=== PATIENT | male | born 1960 | race Caucasian/White ===

== ENCOUNTER 2018-02-19 10:45 | Emergency (ER) | payer OTHER ==
[~2018-02-19] VITALS: Ht 175.3 cm; Wt 108.9 kg
[2018-02-19] MEDS ORDERED: ASPIRIN325 PO (11:02)
[2018-02-19] MEDS ORDERED: COZAAR 25 MG TA25 M1 PO (11:02)
[2018-02-19] MEDS ORDERED: ZOLOFT50 MG PO (11:03)
[2018-02-19] MEDS ORDERED: FLONASE 0.05%50 MCG NASAL (11:03)
[2018-02-19] MEDS ORDERED: FLOMAX0.4 MG PO (11:03)
[2018-02-19] MEDS ORDERED: LIPITOR80 MG PO (11:04)
[2018-02-19] MEDS ORDERED: COREG6.25 MG PO (11:04)
[2018-02-19] MEDS ORDERED: NORVASC5 MG PO (11:04)
[2018-02-19] MEDS ORDERED: PEPCID20 MG PO (11:04)
[2018-02-19] MEDS ORDERED: LANTUS100 UNIT/M SUBQ (11:05)
[2018-02-19] MEDS ORDERED: HUMALOG100 UNIT/1 SUBQ (11:05)
[2018-02-19] MEDS ORDERED: TESSALON PERLE100 MG PO (11:46)
[2018-02-19] MEDS ORDERED: CORICIDIN HBP1 EACH PO (11:46)
[2018-02-19 12:17] VITALS: BP 171/53
== END 2018-02-19 12:17 | disposition home or self-care (01) ==
LOC: ER 10:45
DX: J06.9 Acute upper respiratory infection, unspecified (principal); E11.9 Type 2 diabetes mellitus without complications; Z79.4 Long term (current) use of insulin

== ENCOUNTER 2018-06-01 05:40 | Day surgery (SDC) | payer OTHER ==
[~2018-06-01] VITALS: Ht 175.3 cm; Wt 108.1 kg
--- NOTE | ~2018-06-01 | O ---
[facility] [place] [address] OPERATIVE REPORT Name: MONTSE BARFIELD Room #: 150-9 [facility] M.R.#: [id number] Admission: 06/01/18 ������������������ Attend Phys: Rosaura Guevara, Discharge: ������������������ Date of : 62 Report #: [id number] THIS REPORT FOR: //name// CC: Shaun Guevara DATE OF SERVICE: 06/01/2018 PREOPERATIVE DIAGNOSIS: Left ring finger trigger finger. POSTOPERATIVE DIAGNOSIS: Left ring finger trigger finger. PROCEDURE PERFORMED: Left ring finger A1 gamal release. SURGEON: Rosaura Guevara M.D. ANESTHESIA: Local MAC anesthesia. ESTIMATED BLOOD LOSS: Minimal. TOURNIQUET TIME: 6 minutes. COMPLICATIONS: None. CONDITION: Stable. DISPOSITION: To the recovery room. INDICATIONS: The patient is a 58-year-old male with the above-mentioned diagnosis. He elects for operative treatment. The risks, benefits, alternatives and complications were discussed that included, but not limited to infection, damage to vessels or nerves and incomplete relief of his symptoms. Informed consent was obtained. The correct extremity was identified by myself after verbal confirmation of the patient as well as visual confirmation and signed informed consent. DESCRIPTION OF PROCEDURE: The patient was brought back to the operating room and placed on the operating table in supine position. He received preoperative antibiotics. Tourniquet was placed over padding on the patient's left upper extremity. Left upper extremity was sterilely prepped and draped in the usual fashion. Final timeout was taken to verify correct patient, operative procedure and operative site and all concurred. After adequate sedation was achieved, approximately 2 mL of mixture of 0.25% Marcaine and 1% lidocaine was injected subcutaneously into the proposed incision site. The entire procedure was done with the aid of 3.5 times loupe magnification. The arm was elevated, exsanguinated and tourniquet inflated. [facility] [address] [place] [address] OPERATIVE REPORT Name: MONTSE BARFIELD Room #: 150-9 [facility] M..#: [id number] Admission: 06/01/18 ������������������ Attend Phys: Rosaura Guevara, Discharge: ������������������ Date of : 62 Report #: [id number] Next, a 1.5-cm incision made over the A1 gamal on the left ring finger. Dissection was carried down to the subcutaneous tissue with tenotomy scissors. A1 gamal was easily identified and incised. Careful attention was placed to avoid any damage to the A2 gamal. Next, each tendon was brought in gently through the incision to decrease any injury to the tendons. The finger was taken through passive range of motion. The tendons glided smoothly. Due to the patient's sedation, he was unable to actively participate. The entire procedure was done with the aid of 3.5 times loupe magnification. The wound was thoroughly irrigated. Skin was closed with 4-0 nylon suture. The wound was dressed with Adaptic and sterile gauze. He was placed in a bulky dressing. All fingers were pink with brisk capillary refill at the conclusion of the case, after deflation of the tourniquet. Sponge and needle counts were correct. The patient was transferred to postoperative recovery room in stable condition. ��������������������������������������������� ���������������������������������������� By: ��������������������������������������������� 1144 1243 Rosaura Guevara MD /nt
[~2018-06-01 05:40] MED LIST: ASPIRIN325 PO; CARVEDILOL12.5 MG PO; COREG6.25 MG PO; CORICIDIN HBP1 EACH PO; COZAAR 25 MG TA25 M1 PO; COZAAR100 MG PO; FLOMAX0.4 MG PO; FLONASE 0.05%50 MCG NASAL; HUMALOG100 UNIT/1 SUBQ; LANTUS100 UNIT/M SUBQ; LIPITOR80 MG PO; NORVASC5 MG PO; PEPCID20 MG PO; TESSALON PERLE100 MG PO; ZOLOFT50 MG PO
[2018-06-01 09:55] VITALS: BP 128/63
[2018-06-01 12:06] VITALS: BP 128/63
== END 2018-06-01 12:45 | disposition home or self-care (01) ==
LOC: TBA 05:40 → OR 05:40
DX: M65.342 Trigger finger, left ring finger (principal); I10 Essential (primary) hypertension; E11.9 Type 2 diabetes mellitus without complications; E78.5 Hyperlipidemia, unspecified; G47.33 Obstructive sleep apnea (adult) (pediatric); F32.9 Major depressive disorder, single episode, unspecified; F41.9 Anxiety disorder, unspecified; K21.9 Gastro-esophageal reflux disease without esophagitis; Z79.4 Long term (current) use of insulin; Z95.1 Presence of aortocoronary bypass graft; Z98.890 Other specified postprocedural states; Z79.899 Other long term (current) drug therapy; Z79.82 Long term (current) use of aspirin
CPT/HCPCS: 50010; 50101; 50386; 56526; 57006; 57091

== ENCOUNTER → 2019-09-11 | Outpatient (CLI) | payer OTHER ==
[2019-09-11 09:10] LABS: BASOPHILS 0.5 % (0.0-2.0); EOSINOPHILS 2.7 % (0.0-3.0); HEMATOCRIT 37.2 % (42.0-52.0); HEMOGLOBIN 12.4 gm/dL (14.0-18.0); LYMPHOCYTES 20.1 % (24.0-44.0); MCH 34.3 pg (26.0-34.0); MCHC 33.4 g/dL (28.0-37.0); MCV 102.7 fL (80.0-100.0); MONOCYTES 5.4 % (1.0-8.0); PLATELET COUNT 323 thou/uL (150-400); POLYS 71.3 % (36.0-66.0); RBC 3.62 mil/uL (4.50-6.00); RDW 12.3 % (10.5-14.5); WBC 8.4 thou/uL (4.0-11.0)
[2019-09-11 09:25] LABS: CALCIUM 8.3 mg/dL (8.5-10.1); CREATININE 2.2 mg/dL (0.7-1.3); POTASSIUM 5.1 mmol/L (3.5-5.1); TOTAL BILIRUBIN 0.9 mg/dL (0.2-1.0); TOTAL PROTEIN 5.7 g/dL (6.4-8.2)
== END ==
LOC: LAB 08:09
PROVIDERS: ATTEND Family Medicine
DX: E11.9 Type 2 diabetes mellitus without complications (principal)

== ENCOUNTER → 2019-09-11 | Outpatient (CLI) | payer OTHER | LOC: LAB 07:54 | PROVIDERS: ATTEND Nurse Practitioner | DX: R05 Cough (principal); R06.02 Shortness of breath; R53.83 Other fatigue; Z20.828 Contact with and (suspected) exposure to other viral communicable diseases ==

== ENCOUNTER → 2019-11-20 | Outpatient (CLI) | payer OTHER ==
[2019-11-20 11:14] LABS: URINE BILIRUBIN NEGATIVE (Negative); URINE BLOOD 1+ (Negative); URINE CLARITY CLEAR; URINE COLOR YELLOW; URINE GLUCOSE-RANDOM* NEGATIVE (Negative); URINE KETONES NEGATIVE (Negative); URINE LEUKOCYTES NEGATIVE (Negative); URINE NITRITE NEGATIVE (Negative); URINE PROTEIN (DIPSTICK) 3+ (Negative); URINE SPECIFIC GRAVITY >= 1.030 (1.005-1.035); URINE UROBILINOGEN 0.2 E.U./dl (0.2-1.0)
[2019-11-20 11:20] LABS: PROT/CREAT RATIO 4.5; URINE CREATININE-RANDOM* 80.6 mg/dL; URINE PROTEIN-RANDOM* 359.8 mg/dL (<11.9)
[2019-11-20 11:27] LABS: ALBUMIN 3.4 g/dL (3.4-5.0); CALCIUM 8.6 mg/dL (8.5-10.1); CREATININE 2.4 mg/dL (0.7-1.3); PHOSPHORUS 4.6 mg/dL (2.5-4.9); POTASSIUM 4.8 mmol/L (3.5-5.1)
[2019-11-20 11:31] LABS: BACTERIA None Seen /HPF (None Seen); CASTS None Seen /LPF (None Seen); CRYSTALS None Seen /LPF (None Seen); SQUAMOUS 0-3 Few /LPF (0-3); URINE RBC 0-2 Rare /HPF (0-2); URINE WBC None Seen /HPF (0-5)
== END ==
LOC: LAB 10:36
PROVIDERS: ATTEND Hospitalist
DX: I12.9 Hypertensive chronic kidney disease with stage 1 through stage 4 chronic kidney disease, or unspecified chronic kidney disease (principal); N18.3 Chronic kidney disease, stage 3 (moderate)

== ENCOUNTER → 2020-04-17 | Outpatient (CLI) | payer OTHER ==
[2020-04-17 08:46] LABS: ABSOLUTE NEUTROPHILS 4.4 thou/uL (1.4-8.2); BASOPHILS 0.6 % (0.0-2.0); EOSINOPHILS 2.8 % (0.0-3.0); HEMATOCRIT 32.7 % (42.0-52.0); HEMOGLOBIN 11.1 gm/dL (14.0-18.0); LYMPHOCYTES 20.8 % (24.0-44.0); MCH 34.4 pg (26.0-34.0); MCHC 33.9 g/dL (28.0-37.0); MCV 101.4 fL (80.0-100.0); MONOCYTES 7.5 % (1.0-8.0); PLATELET COUNT 324 thou/uL (150-400); POLYS 68.3 % (36.0-66.0); RBC 3.22 mil/uL (4.50-6.00); RDW 12.6 % (10.5-14.5); WBC 6.5 thou/uL (4.0-11.0)
[2020-04-17 09:08] LABS: CALCIUM 8.6 mg/dL (8.5-10.1); CREATININE 2.9 mg/dL (0.7-1.3); POTASSIUM 4.6 mmol/L (3.5-5.1); TOTAL BILIRUBIN 0.5 mg/dL (0.2-1.0); TOTAL PROTEIN 6.3 g/dL (6.4-8.2)
[2020-04-17 12:07] LABS: PSA 0.9 ng/mL (0.0-4.0); TESTOSTERONE* 500 ng/dL (264-916)
== END ==
LOC: LAB 08:15
PROVIDERS: ATTEND Nurse Practitioner
DX: E55.9 Vitamin D deficiency, unspecified (principal); R68.82 Decreased libido; E11.9 Type 2 diabetes mellitus without complications; R35.1 Nocturia

== ENCOUNTER → 2020-04-29 | Outpatient (CLI) | payer OTHER | LOC: SJCVCIMAG 10:00 | PROVIDERS: ATTEND Internal Medicine | DX: I07.1 Rheumatic tricuspid insufficiency (principal); R00.2 Palpitations; I10 Essential (primary) hypertension; E11.9 Type 2 diabetes mellitus without complications; Z95.1 Presence of aortocoronary bypass graft ==

== ENCOUNTER → 2020-05-19 | Outpatient (CLI) | payer OTHER ==
[2020-05-19 16:14] LABS: URINE BILIRUBIN NEGATIVE (Negative); URINE BLOOD 1+ (Negative); URINE CLARITY CLEAR; URINE COLOR YELLOW; URINE GLUCOSE-RANDOM* TRACE (Negative); URINE KETONES NEGATIVE (Negative); URINE LEUKOCYTES NEGATIVE (Negative); URINE NITRITE NEGATIVE (Negative); URINE PROTEIN (DIPSTICK) 3+ (Negative); URINE SPECIFIC GRAVITY >= 1.030 (1.005-1.035); URINE UROBILINOGEN 0.2 E.U./dl (0.2-1.0)
[2020-05-19 16:23] LABS: URINE CREATININE-RANDOM* 99.3 mg/dL
[2020-05-19 16:25] LABS: ALBUMIN 2.8 g/dL (3.4-5.0); CALCIUM 7.8 mg/dL (8.5-10.1); CREATININE 3.6 mg/dL (0.7-1.3); PHOSPHORUS 4.2 mg/dL (2.6-4.7)
[2020-05-19 16:30] LABS: CRYSTALS None Seen /LPF (None Seen); FINE GRANULAR CASTS 0-3 Few /LPF (None Seen); SQUAMOUS 0-3 Few /LPF (0-3); URINE WBC 0-5 Rare /HPF (0-5)
[2020-05-19 16:31] LABS: BACTERIA 1-9 Few /HPF (None Seen); URINE RBC 0-2 Rare /HPF (0-2)
[2020-05-19 16:34] LABS: PROT/CREAT RATIO 6.5; URINE PROTEIN-RANDOM* 643.5 mg/dL (<11.9)
== END ==
LOC: LAB 15:36
PROVIDERS: ATTEND Hospitalist
DX: I10 Essential (primary) hypertension (principal); N18.30 Chronic kidney disease, stage 3 unspecified

== ENCOUNTER → 2020-05-30 | Outpatient (CLI) | payer OTHER | LOC: LAB 13:08 | PROVIDERS: ATTEND Internal Medicine | DX: R53.83 Other fatigue (principal) ==

== ENCOUNTER → 2020-05-30 | Outpatient (CLI) | payer OTHER | LOC: SJCVCIMAG 07:37 | PROVIDERS: ATTEND Internal Medicine | DX: I49.3 Ventricular premature depolarization (principal); E78.5 Hyperlipidemia, unspecified; I10 Essential (primary) hypertension; E11.9 Type 2 diabetes mellitus without complications; R53.83 Other fatigue; R06.00 Dyspnea, unspecified; Z79.4 Long term (current) use of insulin; Z95.1 Presence of aortocoronary bypass graft; Z79.899 Other long term (current) drug therapy; Z79.82 Long term (current) use of aspirin ==

== ENCOUNTER → 2020-06-02 | Outpatient (CLI) | payer OTHER | LOC: MRI 10:51 | PROVIDERS: ATTEND Family Medicine | DX: R42 Dizziness and giddiness (principal); H70.12 Chronic mastoiditis, left ear; R25.1 Tremor, unspecified ==

== ENCOUNTER → 2020-07-18 | Outpatient (CLI) | payer OTHER | LOC: CAT 15:50 | PROVIDERS: ATTEND Otolaryngology Plastic Surgery within the Head & Neck | DX: G47.33 Obstructive sleep apnea (adult) (pediatric) (principal); H70.90 Unspecified mastoiditis, unspecified ear; R09.82 Postnasal drip ==

== ENCOUNTER → 2020-09-08 | Outpatient (CLI) | payer OTHER ==
[2020-09-08 16:41] LABS: ABSOLUTE NEUTROPHILS 5.9 thou/uL (1.4-8.2); BASOPHILS 0.3 % (0.0-2.0); EOSINOPHILS 3.3 % (0.0-3.0); HEMATOCRIT 29.7 % (42.0-52.0); HEMOGLOBIN 9.9 gm/dL (14.0-18.0); MCH 34.9 pg (26.0-34.0); MCHC 33.4 g/dL (28.0-37.0); MCV 104.4 fL (80.0-100.0); MONOCYTES 7.4 % (1.0-8.0); PLATELET COUNT 296 thou/uL (150-400); RBC 2.85 mil/uL (4.50-6.00); RDW 13.2 % (10.5-14.5); WBC 8.7 thou/uL (4.0-11.0)
[2020-09-08 16:48] LABS: % SATURATION 26 % (20-39); IRON 65 ug/dL (65-175); TIBC 246 ug/dL (250-450)
[2020-09-08 16:49] LABS: ALBUMIN 2.9 g/dL (3.4-5.0); CALCIUM 7.6 mg/dL (8.5-10.1); CREATININE 4.3 mg/dL (0.7-1.3); PHOSPHORUS 3.7 mg/dL (2.5-4.9); POTASSIUM 5.7 mmol/L (3.5-5.1); PROT/CREAT RATIO 5.4; TOTAL BILIRUBIN 0.4 mg/dL (0.2-1.0); TOTAL PROTEIN 6.3 g/dL (6.4-8.2); URINE CREATININE-RANDOM* 99.3 mg/dL; URINE PROTEIN-RANDOM* 533.2 mg/dL (<11.9)
[2020-09-09 01:06] LABS: GLYCOHEMOGLOBIN (HGB A1C) 6.8 % (4.8-5.6)
== END ==
LOC: LAB 16:00
PROVIDERS: ATTEND Hospitalist
DX: N18.4 Chronic kidney disease, stage 4 (severe) (principal); D63.1 Anemia in chronic kidney disease

== ENCOUNTER 2020-10-01 17:53 | Inpatient (IN) | payer OTHER ==
[~2020-10-01] VITALS: Ht 175.3 cm; Wt 104.3 kg
[2020-10-01 17:55] VITALS: BP 197/87
[2020-10-01] MEDS ORDERED: LANTUS100 UNIT/M SUBQ (18:34)
[2020-10-01 18:55] LABS: ABSOLUTE NEUTROPHILS 4.6 thou/uL (1.4-8.2); BASOPHILS 0.8 % (0.0-2.0); EOSINOPHILS 3.1 % (0.0-3.0); HEMATOCRIT 28.6 % (42.0-52.0); HEMOGLOBIN 9.8 gm/dL (14.0-18.0); LYMPHOCYTES 23.6 % (24.0-44.0); MCH 35.5 pg (26.0-34.0); MCHC 34.2 g/dL (28.0-37.0); MCV 103.9 fL (80.0-100.0); MONOCYTES 8.6 % (1.0-8.0); PLATELET COUNT 297 thou/uL (150-400); POLYS 63.9 % (36.0-66.0); RBC 2.75 mil/uL (4.50-6.00); RDW 12.6 % (10.5-14.5); WBC 7.2 thou/uL (4.0-11.0)
[2020-10-01 19:11] LABS: POTASSIUM 6.8 mmol/L (3.5-5.1)
[2020-10-01 21:13] LABS: URINE BILIRUBIN NEGATIVE (Negative); URINE BLOOD TRACE (Negative); URINE CLARITY CLEAR; URINE COLOR YELLOW; URINE GLUCOSE-RANDOM* TRACE (Negative); URINE KETONES NEGATIVE (Negative); URINE LEUKOCYTES-REFLEX NEGATIVE (Negative); URINE NITRITE-REFLEX NEGATIVE (Negative); URINE PROTEIN (DIPSTICK) 3+ (Negative); URINE UROBILINOGEN 0.2 E.U./dl (0.2-1.0)
[2020-10-01 21:14] VITALS: BP 154/65
[2020-10-01 21:20] LABS: BACTERIA-REFLEX 1-9 Few /HPF (None Seen); CELLULAR CASTS 0-3 Few /LPF (None Seen); CRYSTALS None Seen /LPF (None Seen); HYALINE CASTS 0-3 Few /LPF (None Seen); MUCUS 0-3 Light strn/LPF (None Seen); SQUAMOUS 0-3 Few /LPF (0-3); URINE RBC 1-2 Rare /HPF (NONE SEEN); URINE WBC-REFLEX 0-5 Rare /HPF (0-5)
[2020-10-01 21:31] VITALS: BP 159/78
[2020-10-01 22:11] VITALS: BP 182/82
[2020-10-02 00:15] VITALS: BP 168/78
[2020-10-02 04:49] VITALS: BP 187/94
--- NOTE | 2020-10-02 07:12 | EKG ---
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
[2020-10-02 07:53] VITALS: BP 191/82
[2020-10-02 09:08] LABS: CALCIUM 8.7 mg/dL (8.5-10.1); CREATININE 4.5 mg/dL (0.7-1.3)
[2020-10-02 09:10] LABS: POTASSIUM 5.5 mmol/L (3.5-5.1)
[2020-10-02 14:19] LABS: URINE BILIRUBIN NEGATIVE (Negative); URINE BLOOD TRACE (Negative); URINE CLARITY CLEAR; URINE COLOR YELLOW; URINE GLUCOSE-RANDOM* TRACE (Negative); URINE KETONES NEGATIVE (Negative); URINE LEUKOCYTES NEGATIVE (Negative); URINE NITRITE NEGATIVE (Negative); URINE PROTEIN (DIPSTICK) 3+ (Negative); URINE SPECIFIC GRAVITY 1.025 (1.005-1.035); URINE UROBILINOGEN 0.2 E.U./dl (0.2-1.0)
[2020-10-02 14:22] LABS: URINE CREATININE-RANDOM* 83.2 mg/dL
[2020-10-02 14:58] LABS: CASTS None Seen /LPF (None Seen); CRYSTALS None Seen /LPF (None Seen); SQUAMOUS None Seen /LPF (0-3); URINE RBC 1-2 Rare /HPF (NONE SEEN); URINE WBC 1-5 Rare /HPF (NONE SEEN)
[2020-10-02 14:59] LABS: BACTERIA 1-9 Few /HPF (None Seen)
[2020-10-02 16:55] VITALS: BP 173/78
[2020-10-03 05:54] LABS: ALBUMIN 2.7 g/dL (3.4-5.0); CALCIUM 8.2 mg/dL (8.5-10.1); CREATININE 3.8 mg/dL (0.7-1.3); PHOSPHORUS 4.1 mg/dL (2.5-4.9); POTASSIUM 5.1 mmol/L (3.5-5.1)
[2020-10-03 07:54] VITALS: BP 209/90
[2020-10-03] MEDS ORDERED: NORVASC5 MG PO (08:07)
[2020-10-03 09:36] VITALS: BP 179/83
[2020-10-03 16:14] VITALS: BP 155/84
[2020-10-03 18:23] VITALS: BP 155/84
[2020-10-03 19:26] VITALS: BP 155/78
== END 2020-10-03 20:30 | disposition home or self-care (01) | DRG 684 ==
LOC: ER 17:53 → 4W 20:02 → EROBS 20:02 → 4W 21:36
PROVIDERS: Emergency Medicine; Hospitalist; ADMIT Family Medicine; ATTEND Family Medicine
DX: N17.9 Acute kidney failure, unspecified (principal); N18.4 Chronic kidney disease, stage 4 (severe); E78.5 Hyperlipidemia, unspecified; F32.9 Major depressive disorder, single episode, unspecified; F41.9 Anxiety disorder, unspecified; I25.10 Atherosclerotic heart disease of native coronary artery without angina pectoris; E87.5 Hyperkalemia; E11.22 Type 2 diabetes mellitus with diabetic chronic kidney disease; I12.9 Hypertensive chronic kidney disease with stage 1 through stage 4 chronic kidney disease, or unspecified chronic kidney disease; N31.9 Neuromuscular dysfunction of bladder, unspecified; N32.0 Bladder-neck obstruction; N40.1 Benign prostatic hyperplasia with lower urinary tract symptoms; R33.8 Other retention of urine; Z79.4 Long term (current) use of insulin; Z95.1 Presence of aortocoronary bypass graft; Z82.49 Family history of ischemic heart disease and other diseases of the circulatory system; Z83.3 Family history of diabetes mellitus
CPT/HCPCS: 10045

== ENCOUNTER → 2020-10-01 | Outpatient (CLI) | payer OTHER ==
[2020-10-01 16:13] LABS: ALBUMIN 3.2 g/dL (3.4-5.0); CALCIUM 7.8 mg/dL (8.5-10.1); CREATININE 5.3 mg/dL (0.7-1.3); PHOSPHORUS 4.1 mg/dL (2.6-4.7)
== END ==
LOC: LAB 14:56
DX: N18.4 Chronic kidney disease, stage 4 (severe) (principal)

== ENCOUNTER → 2020-10-06 | Outpatient (CLI) | payer OTHER ==
[2020-10-06 12:55] LABS: CALCIUM 8.4 mg/dL (8.5-10.1); CREATININE 4.3 mg/dL (0.7-1.3); POTASSIUM 4.7 mmol/L (3.5-5.1)
== END ==
LOC: LAB 12:16
PROVIDERS: ATTEND Family Medicine
DX: E87.5 Hyperkalemia (principal)

== ENCOUNTER → 2020-10-13 | Outpatient (CLI) | payer OTHER ==
[~2020-10-13] VITALS: Ht 175.3 cm; Wt 104.3 kg
[~2020-10-13] MED LIST changes: +PROTONIX40 M2 PO; +VITAMIN D21250 MCG PO; +ZOLOFT50 M1 PO
--- NOTE | 2020-10-14 16:06 | PATH ---
[facility] [address] PATHOLOGY RPT PROCEDURE Name: DAVISMONTSE ALICE Room #: [facility].#: [id number] Admission: 10/13/20 Date of : 62 Discharge: Report #: [id number] Path Case #: [id number] [facility] Accession Number: [id number] . 01 Material submitted: . PART A: cecum - CECAL POLYP X2. Modifiers: X2 PART B: colon - TRANSVERSE COLON POLYP X2. Modifiers: transverse, X2 PART C: colon - DESCENDING COLON POLYP. Modifiers: descending PART D: sigmoid colon - SIGMOID COLON POLYP . 01 Clinical history: . EGD/COLONOSCOPY CHANGE IN BOWEL HABITS/GERD COLON POLYPS . 02 Diagnosis: A. Polyps x 2, cecal polyps, endoscopic biopsy: - Tubular adenoma identified in multiple fragments. - Negative for high-grade dysplasia. . B. Polyps x 2, transverse colon polyps, endoscopic biopsy: - Multiple fragments of tubular adenoma. - Negative for high-grade dysplasia. . C. Polyp, descending colon, endoscopic biopsy: - Tubular adenoma. - Negative for high-grade dysplasia. . D. Polyp, sigmoid colon polyp, endoscopic biopsy: - Tubulovillous adenoma. - Negative for high-grade dysplasia. - Unremarkable mucosa present at stalk base. (IUV:pit; 10/14/2020) QTP 10/14/2020 1248 Local . 02 Electronically signed: . Rowan Holloway MD, Pathologist NPI- [id number] . 01 Gross description: . A. The specimen is received in formalin, labeled "Scout Cannon and cecal polyp *2 ". It consists of multiple kaur irregular soft tissue fragments measuring 1.0 x 0.8 x 0.3 cm in aggregate. The specimen is entirely submitted between sponges in A1. . B. The specimen is received in formalin, labeled "Scout Cannon and transverse colon polyp" and per the requisition "transverse colon polyp [address] [address] PATHOLOGY RPT PROCEDURE Name: MONTSE CANNON Room #: REG [facility] Susanna.#: [id number] Admission: 10/13/20 Date of : 62 Discharge: Report #: [id number] Path Case #: [id number] *2". It consists of multiple akur irregular soft tissue fragments measuring 0.9 x 0.7 x 0.3 cm in aggregate. The specimen is entirely submitted between sponges in B1. . C. The specimen is received in formalin, labeled "DavisScout J and descending colon polyp". It consists of multiple kaur irregular soft tissue fragments measuring 0.5 x 0.3 x 0.2 cm in aggregate. The specimen is entirely submitted between sponges in C1. . D. The specimen is received in formalin, labeled "Davis, Butterfield J and sigmoid colon polyp". It consists of a kaur-brown polypoid soft tissue fragment measuring 1.2 x 1.1 x 0.9 cm. The resection surface is inked black and the specimen is sectioned. The specimen is entirely submitted in D1. (MRF; 10/13/2020) MFE/MFE 10/14/2020 1251 Local . 02 Pathologist provided ICD-10: D12.0, D12.3, D12.4, D12.5 . 02 CPT . 820265, 322143, 388509, 903700 Specimen Comment: A courtesy copy of this report has been sent to [phone], [phone] Specimen Comment: [id number] Specimen Comment: Report sent to / DR HAMM Performed at: 01 [facility] [address] [place] [address] [address], [place], [place] [id number] MD Dieter Sue MD Phone: [phone] Performed at: [address] [id number] MD Rowan Holloway MD Phone: [phone]
== END | disposition home or self-care (01) ==
LOC: GI 07:26
PROVIDERS: ATTEND Internal Medicine Gastroenterology
DX: Z12.11 Encounter for screening for malignant neoplasm of colon (principal); D12.0 Benign neoplasm of cecum; D12.3 Benign neoplasm of transverse colon; D12.4 Benign neoplasm of descending colon; D12.5 Benign neoplasm of sigmoid colon; K62.1 Rectal polyp; R12 Heartburn; I12.9 Hypertensive chronic kidney disease with stage 1 through stage 4 chronic kidney disease, or unspecified chronic kidney disease; E11.22 Type 2 diabetes mellitus with diabetic chronic kidney disease; E78.5 Hyperlipidemia, unspecified; N18.4 Chronic kidney disease, stage 4 (severe); I25.10 Atherosclerotic heart disease of native coronary artery without angina pectoris; E78.00 Pure hypercholesterolemia, unspecified; N40.0 Benign prostatic hyperplasia without lower urinary tract symptoms; K21.9 Gastro-esophageal reflux disease without esophagitis; J45.909 Unspecified asthma, uncomplicated; G47.30 Sleep apnea, unspecified; Z98.890 Other specified postprocedural states; Z79.899 Other long term (current) drug therapy; Z95.1 Presence of aortocoronary bypass graft; Z79.4 Long term (current) use of insulin
CPT/HCPCS: 62110; 62900

== ENCOUNTER → 2020-10-29 | Outpatient (CLI) | payer OTHER ==
[2020-10-29 16:08] LABS: ALBUMIN 3.3 g/dL (3.4-5.0); CALCIUM 8.2 mg/dL (8.5-10.1); CREATININE 4.1 mg/dL (0.7-1.3); PHOSPHORUS 4.4 mg/dL (2.5-4.9); POTASSIUM 4.9 mmol/L (3.5-5.1)
== END ==
LOC: LAB 15:20
PROVIDERS: ATTEND Hospitalist
DX: T85.43XA Leakage of breast prosthesis and implant, initial encounter (principal)

== ENCOUNTER → 2020-11-12 | Outpatient (CLI) | payer OTHER ==
[2020-11-12 17:46] LABS: ABSOLUTE NEUTROPHILS 4.2 thou/uL (1.4-8.2); BASOPHILS 0.9 % (0.0-2.0); EOSINOPHILS 2.8 % (0.0-3.0); HEMATOCRIT 36.4 % (42.0-52.0); LYMPHOCYTES 21.2 % (24.0-44.0); MCH 34.1 pg (26.0-34.0); MCHC 33.1 g/dL (28.0-37.0); MCV 103.1 fL (80.0-100.0); MONOCYTES 5.7 % (1.0-8.0); PLATELET COUNT 353 thou/uL (150-400); POLYS 69.4 % (36.0-66.0); RBC 3.53 mil/uL (4.50-6.00); RDW 12.8 % (10.5-14.5)
[2020-11-12 17:53] LABS: PROT/CREAT RATIO 4.1; URINE CREATININE-RANDOM* 105.8 mg/dL; URINE PROTEIN-RANDOM* 434.1 mg/dL (<11.9)
[2020-11-12 17:54] LABS: ALBUMIN 3.6 g/dL (3.4-5.0); CALCIUM 8.7 mg/dL (8.5-10.1); CREATININE 3.9 mg/dL (0.7-1.3); PHOSPHORUS 3.8 mg/dL (2.5-4.9); POTASSIUM 5.4 mmol/L (3.5-5.1)
== END ==
LOC: LAB 14:55
PROVIDERS: ATTEND Nurse Practitioner
DX: N18.4 Chronic kidney disease, stage 4 (severe) (principal)

== ENCOUNTER → 2021-01-14 | Outpatient (CLI) | payer OTHER ==
[2021-01-14 12:06] LABS: URINE BILIRUBIN NEGATIVE (Negative); URINE BLOOD NEGATIVE (Negative); URINE CLARITY CLEAR; URINE COLOR YELLOW; URINE GLUCOSE-RANDOM* NEGATIVE (Negative); URINE KETONES NEGATIVE (Negative); URINE LEUKOCYTES-REFLEX NEGATIVE (Negative); URINE NITRITE-REFLEX NEGATIVE (Negative); URINE PROTEIN (DIPSTICK) 2+ (Negative); URINE SPECIFIC GRAVITY >= 1.030 (1.005-1.035); URINE UROBILINOGEN 0.2 E.U./dl (0.2-1.0)
[2021-01-14 12:31] LABS: ALBUMIN 3.6 g/dL (3.4-5.0); CALCIUM 8.3 mg/dL (8.5-10.1); CREATININE 3.7 mg/dL (0.7-1.3); PHOSPHORUS 3.4 mg/dL (2.5-4.9); POTASSIUM 5.1 mmol/L (3.5-5.1)
[2021-01-14 12:54] LABS: CASTS None Seen /LPF (None Seen); MUCUS 0-3 Light strn/LPF (None Seen); SQUAMOUS 0-3 Few /LPF (0-3)
[2021-01-14 12:55] LABS: BACTERIA-REFLEX None Seen /HPF (None Seen); CRYSTALS None Seen /LPF (None Seen); URINE RBC None Seen /HPF (NONE SEEN); URINE WBC-REFLEX 0-5 Rare /HPF (0-5)
[2021-01-14 13:04] LABS: PROT/CREAT RATIO 2.8; URINE CREATININE-RANDOM* 127.6 mg/dL; URINE PROTEIN-RANDOM* 353.1 mg/dL (<11.9)
== END ==
LOC: LAB 11:34
PROVIDERS: ATTEND Hospitalist
DX: I12.9 Hypertensive chronic kidney disease with stage 1 through stage 4 chronic kidney disease, or unspecified chronic kidney disease (principal); R80.9 Proteinuria, unspecified; N18.4 Chronic kidney disease, stage 4 (severe); E78.5 Hyperlipidemia, unspecified

== ENCOUNTER 2021-03-13 10:34 | Inpatient (IN) | payer OTHER ==
[~2021-03-13] VITALS: Ht 175.3 cm; Wt 84.9 kg
[2021-03-13] VITALS (31 sets, daily range): BP systolic 136–159; BP diastolic 55–110
[2021-03-13 11:27] LABS: ABSOLUTE NEUTROPHILS 9.2 thou/uL (1.4-8.2); BASOPHILS 0.4 % (0.0-2.0); HEMATOCRIT 26.5 % (42.0-52.0); HEMOGLOBIN 8.7 gm/dL (14.0-18.0); LYMPHOCYTES 5.6 % (24.0-44.0); MCH 33.5 pg (26.0-34.0); MCHC 32.8 g/dL (28.0-37.0); MONOCYTES 5.1 % (1.0-8.0); PLATELET COUNT 320 thou/uL (150-400); POLYS 88.9 % (36.0-66.0); RDW 12.5 % (10.5-14.5); WBC 10.4 thou/uL (4.0-11.0)
[2021-03-13 11:34] LABS: CALCIUM 8.2 mg/dL (8.5-10.1); CREATININE 8.4 mg/dL (0.7-1.3); POTASSIUM 5.2 mmol/L (3.5-5.1)
[2021-03-13 11:38] LABS: APTT 43.9 Seconds (24.5-32.8); D-DIMER 1.36 ug/mLFEU (0.19-0.50); INR 1.05; PROTIME 11.4 Seconds (10.5-12.1)
[2021-03-13 11:44] LABS: ALBUMIN 2.7 g/dL (3.4-5.0); TOTAL BILIRUBIN 0.4 mg/dL (0.2-1.0); TOTAL PROTEIN 6.8 g/dL (6.4-8.2)
[2021-03-13] MEDS ORDERED: AMLODIPINE BESY10 MG PO (12:06)
[2021-03-13] MEDS ORDERED: COLACE 100 MG100 MG PO (12:07)
--- NOTE | 2021-03-13 14:59 | NUR ---
Patient arrived on the floor at 1435. Patient is assesssed by this RN. Patient is Alert and oriented x4. Patient has diminished lung sounds and is currently on 3L of oxygen. Patient is Med-surge/ tele. Patient is continent of both bowel and bladder. Patient is up with one assist/ supervision and is steady on his feet. Patient has an IV in his left AC that is patent. Patient arrived from the floor from IR where he had a dialysis cath placed in his right IJ; it is a triple lumen. Patient reports no pain at this time. Patient will continue to be monitored.
--- NOTE | 2021-03-13 16:22 | NUR ---
PATIENT TRANSFERRED TO ICU FROM 3W AT 1530 THIS AFTERNOON, ALERT AND ORIENTED AND DENIES PAIN. VITALS STABLE. ADMISSION HISTORY AND ASSESSMENT COMPLETED AND BELONGINGS IDENTIFIED. STARTED ON HEMODIALYSIS PER TEMP HD CATH BY HD NURSE.
[2021-03-14] VITALS (70 sets, daily range): BP systolic 127–204; BP diastolic 48–93
[2021-03-14 04:31] LABS: CALCIUM 7.7 mg/dL (8.5-10.1)
[2021-03-14 04:34] LABS: CREATININE 5.3 mg/dL (0.7-1.3); POTASSIUM 4.1 mmol/L (3.5-5.1)
[2021-03-14 04:35] LABS: ALBUMIN 2.3 g/dL (3.4-5.0); PHOSPHORUS 4.4 mg/dL (2.5-4.9)
--- NOTE | 2021-03-14 17:25 | NUR ---
assumed care of pt at 0700. pt alert and oriented, flat affect, no apparent distress. voicing no complaints. maintains spo2 on optiflow 45L/100%. remdesivir and IV abx initiated. ok to transfer to telemetry per hospitalist.
--- NOTE | 2021-03-14 21:44 | NUR ---
ASSUMED CARE OF PT AT 1900. SPOKE TO PT ARUN AT 2144. ANSWERED QUESTIONS AND UPDATED ON POC
[2021-03-15] VITALS (26 sets, daily range): BP systolic 135–179; BP diastolic 65–81
[2021-03-15 04:07] LABS: ANION GAP 12 mmol/L (7-16); BUN 54 mg/dL (7-18); CALCIUM 7.9 mg/dL (8.5-10.1); CHLORIDE 102 mmol/L (98-107); CO2 28 mmol/L (21-32); CREATININE 4.9 mg/dL (0.7-1.3); DIRECT BILIRUBIN < 0.1 mg/dL (<0.1-0.2); GLUCOSE 74 mg/dL (74-106); PHOSPHORUS 6.2 mg/dL (2.5-4.9); SGOT 33 U/L (15-37); SGPT 17 U/L (30-65); SODIUM 142 mmol/L (136-145); TOTAL BILIRUBIN 0.4 mg/dL (0.2-1.0)
[2021-03-15 04:08] LABS: ABSOLUTE NEUTROPHILS 5.4 thou/uL (1.4-8.2); BASOPHILS 0.2 % (0.0-2.0); HEMATOCRIT 21.7 % (42.0-52.0); HEMOGLOBIN 7.5 gm/dL (14.0-18.0); LYMPHOCYTES 7.7 % (24.0-44.0); MCHC 34.6 g/dL (28.0-37.0); MCV 98.4 fL (80.0-100.0); MONOCYTES 9.6 % (1.0-8.0); PLATELET COUNT 369 thou/uL (150-400); POLYS 82.5 % (36.0-66.0); RBC 2.21 mil/uL (4.50-6.00); RDW 12.8 % (10.5-14.5); WBC 6.6 thou/uL (4.0-11.0)
[2021-03-15 04:53] LABS: INR 1.11
[2021-03-15 05:21] LABS: FIBRINOGEN > 860 mg/dL (201-437)
[2021-03-15 07:25] LABS: HIV ANTIBODY Non Reactive (Non Reactive)
[2021-03-15 07:25] LABS: GLYCOHEMOGLOBIN (HGB A1C) 5.8 % (4.8-5.6)
--- NOTE | 2021-03-15 09:51 | NUR ---
THIS RN SPOKE WITH THE PATIENT'S , AVEL BARFIELD, FROM [id number] AND SHE WAS UPDATED AND EDUCATED ON THE PATIENT'S CONDITION AND PLAN OF CARE.
--- NOTE | 2021-03-15 23:33 | NUR ---
2215: Spoke with pt's , Tyuet, for approximately 30 minutes. Pt's updated on pt status; education also done regarding bipap, various reasons why pt is experiencing nausea, plan of care, answered questions about quality of life and restrictions on peritoneal dialysis. also concerned because pt works for [employer] and does not have any more sick days. Referred her to human resources and gave her their number to call in the morning.
[2021-03-16] VITALS (63 sets, daily range): BP systolic 90–179; BP diastolic 53–92
[2021-03-16 05:17] LABS: URINE BILIRUBIN NEGATIVE (Negative); URINE BLOOD 1+ (Negative); URINE CLARITY CLEAR; URINE COLOR YELLOW; URINE GLUCOSE-RANDOM* TRACE (Negative); URINE KETONES NEGATIVE (Negative); URINE LEUKOCYTES-REFLEX NEGATIVE (Negative); URINE NITRITE-REFLEX NEGATIVE (Negative); URINE PROTEIN (DIPSTICK) 3+ (Negative); URINE SPECIFIC GRAVITY 1.025 (1.005-1.035); URINE UROBILINOGEN 0.2 E.U./dl (0.2-1.0)
[2021-03-16 05:19] LABS: HEMATOCRIT 23.5 % (42.0-52.0); HEMOGLOBIN 7.9 gm/dL (14.0-18.0); MCH 33.8 pg (26.0-34.0); MCHC 33.6 g/dL (28.0-37.0); MCV 100.6 fL (80.0-100.0); RBC 2.33 mil/uL (4.50-6.00); WBC 9.8 thou/uL (4.0-11.0)
[2021-03-16 05:40] LABS: ALBUMIN 2.2 g/dL (3.4-5.0); ANION GAP 16 mmol/L (7-16); BUN 87 mg/dL (7-18); CALCIUM 7.9 mg/dL (8.5-10.1); CHLORIDE 98 mmol/L (98-107); CO2 24 mmol/L (21-32); DIRECT BILIRUBIN < 0.1 mg/dL (<0.1-0.2); GLUCOSE 154 mg/dL (74-106); PHOSPHORUS 7.5 mg/dL (2.5-4.9); POTASSIUM 4.5 mmol/L (3.5-5.1); SGOT 37 U/L (15-37); SGPT 15 U/L (30-65); SODIUM 138 mmol/L (136-145); TOTAL BILIRUBIN 0.5 mg/dL (0.2-1.0); TOTAL PROTEIN 6.2 g/dL (6.4-8.2)
[2021-03-16 05:49] LABS: CREATININE 6.9 mg/dL (0.7-1.3)
[2021-03-16 06:43] LABS: CASTS None Seen /LPF (None Seen); SQUAMOUS 0-3 Few /LPF (0-3)
[2021-03-16 06:44] LABS: AMORPHOUS URATES Few /LPF (None Seen); BACTERIA-REFLEX None Seen /HPF (None Seen); URINE RBC 1-2 Rare /HPF (NONE SEEN); URINE WBC-REFLEX 0-5 Rare /HPF (0-5)
--- NOTE | 2021-03-16 07:14 | EKG ---
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 : 1960 Requested By: Benedicto Roth Order Number: [id number] MD: Yahir Nava Measurements Intervals [place] Rate: 79 P: 45 TN: 157 QRS: -16 QRSD: 109 T: 30 QT: 403 QTc: 463 Interpretive Statements Sinus rhythm RSR' in V1 or V2, probably normal variant Inferior infarct, old Compared to ECG 10/01/2020 18:14:11 Sinus bradycardia no longer present Myocardial infarct finding still present Electronically Signed On 03-16-2021 7:14:11 SOCIAL WORKER by Yahir Nava [email or web address] <ELECTRONICALLY SIGNED> By: Yahir Nava MD, FAC 03/16/21 0714 1119 1119 Yahir Nava MD, [facility] /EPI
[2021-03-17] VITALS (31 sets, daily range): BP systolic 129–188; BP diastolic 58–106
[2021-03-17 05:54] LABS: HEMATOCRIT 26.5 % (42.0-52.0); HEMOGLOBIN 8.8 gm/dL (14.0-18.0); MCHC 33.2 g/dL (28.0-37.0); MCV 99.4 fL (80.0-100.0); PLATELET COUNT 481 thou/uL (150-400); RBC 2.67 mil/uL (4.50-6.00); RDW 12.8 % (10.5-14.5); WBC 8.4 thou/uL (4.0-11.0)
[2021-03-17 06:23] LABS: ALBUMIN 2.3 g/dL (3.4-5.0); CALCIUM 8.1 mg/dL (8.5-10.1); DIRECT BILIRUBIN 0.2 mg/dL (<0.1-0.2); PHOSPHORUS 5.2 mg/dL (2.5-4.9); POTASSIUM 4.1 mmol/L (3.5-5.1); TOTAL BILIRUBIN 1.1 mg/dL (0.2-1.0); TOTAL PROTEIN 6.2 g/dL (6.4-8.2)
[2021-03-17 06:33] LABS: CREATININE 5.8 mg/dL (0.7-1.3)
--- NOTE | 2021-03-17 06:36 | NUR ---
Pt is a&o x 4. communicates needs. pt has been on and off HFC and BIPAP this night. pt denies pain. Zofran adm during shift for nausea. Pt will likely undergo dialysis (subject to lab results) per Dr. Balderas.
[2021-03-17 07:54] LABS: ABSOLUTE NEUTROPHILS 6.6 thou/uL (1.4-8.2); ATYPICAL LYMPHS 2 %; MYELOCYTES 1 %; NUCLEATED RBCS 1 /100WBC
[2021-03-17 10:07] LABS: HEP B SURFACE Ab(ANTI-HBS Reactive (()); HEPATITIS B SURFACE AG Negative (Negative)
--- NOTE | 2021-03-17 14:01 | NUR ---
Case opened to follow for support and dc planning needs. Pt admitted to the ICU covid+ and in enhanced ISO. Assessment completed with pt's spouse marii via phone. Cm role introduced. 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 He is normally indep with gait and adl's and drives. He was working fulltime prior. He tested postive at home on 03/11/21. He was vaccined here last but per his has not gotten a booster. She has had both and been boosted. She is feeling well and has tested negative. She has been isolating at home. She has been in contact with at [employer] for [employer] paperwork and for his [employer] std info. She will provide those documents to Dr. Bhardwaj (pcp) office for completion. The pt has a hx of IDDM, HTN and was being followed by Dr. Balderas due to kidney disease. He was started on hemodialysis after admission and it is uncertain if this is will be needed correction. Case discussed with the care team. Dc planning needs and timeframe are uncertain at this time. Will follow along. Emotional support provided to pt's spouse.
--- NOTE | 2021-03-17 16:46 | NUR ---
PT RECEIVED DIALYSIS TODAY WITH APPROX 3LITERS OF FLUID BEING REMOVED FROM PATIENT. PT WAS ON OPTI-FLOW MOST OF THE DAY HOWEVER, STARTED TO DESAT IN HIGH 80'S PLACED BACK ON BIPAP AT 1620. PT OXYGENATION IMPROVED. WILL CONTINUE TO MONITOR AND REASSESS.
--- NOTE | 2021-03-17 22:43 | NUR ---
ASSUMED CARE OF PT AT 1900. SPOKE TO PT AT 0. UPDATED ON PT STATUS AND ANSWERED QUESTIONS.
--- NOTE | 2021-03-17 23:58 | HC ---
[facility] [place] [address] CONSULTATION Name: MONTSE BARFIELD Room #: 241-P ADM IN M.R.#: [id number] Admission: 03/13/21 Attend Phys: Aamir Raymundo Discharge: Date of : 62 Report #: [id number] THIS REPORT FOR: cc: Shaun Bhardwaj MD, Neal A. MD Geha, Daniel J. MD ~ DATE OF SERVICE: 03/14/2021 INFECTIOUS DISEASE CONSULTATION REASON FOR CONSULTATION: I was asked to evaluate concerning COVID-19 pneumonia. HISTORY OF PRESENT ILLNESS: The patient is a 60-year-old with diabetes, hypertension, and chronic kidney disease. He has been followed by Nephrology Service. There was anticipation for peritoneal dialysis in the near future. One week ago, the patient developed nonproductive cough, congestion, fatigue, myalgias, low-grade fever, and was tested positive for COVID-19. He developed progressive shortness of breath and presented for further evaluation. He was found to have bilateral infiltrates and hypoxia. He is now on high-flow oxygen. He has also had renal failure with a creatinine up to 8. Right neck dialysis catheter was placed and he is now on dialysis. Nephrology Service has been evaluating and treating. Denies any rash, arthritis, nausea, vomiting, diarrhea. No chest pain or palpitations. No hemoptysis. Denies headache or nausea. REVIEW OF SYSTEMS: A 14-point review of system is negative other than what has been described above. PAST MEDICAL HISTORY: Diabetes, hypertension, obstructive sleep apnea, depression, gastroesophageal reflux, chronic kidney disease with proteinuria, coronary artery bypass grafting, left wrist ganglion cyst excision, BPH, trigger finger release. ALLERGIES: None known. MEDICATIONS: As noted on his MAR, which were reviewed. FAMILY HISTORY: Diabetes, coronary artery disease. SOCIAL HISTORY: Nonsmoker, no significant alcohol intake. PHYSICAL EXAMINATION: GENERAL: He is afebrile and hemodynamically stable. Alert and cooperative on high-flow oxygen per nasal cannula. SKIN: Without rash or decubitus. No palpable adenopathy. [facility] [address] [place] [address] CONSULTATION Name: MONTSE BARFIELD Room #: [facility] IN M.R.#: [id number] Admission: 03/13/21 Attend Phys: Aamir Raymundo Discharge: Date of : 62 Report #: [id number] HEENT: Eyes without scleral icterus. Mouth without mucositis. NECK: Supple. Right neck dialysis catheter site was without drainage. LUNGS: Coarse breath sounds posteriorly. HEART: Regular, without murmur, gallop or rub. ABDOMEN: Soft, without hepatosplenomegaly or mass. EXTREMITIES: Without clubbing, cyanosis, or edema. GENITORECTAL: Exam not performed. SPINE: Nontender. NEUROLOGIC: Cranial nerves intact. Strength in upper and lower extremities was symmetric and within normal limits. LABORATORY DATA: Reviewed. MICROBIOLOGY: Reviewed. IMAGING: Chest x-ray reviewed. IMPRESSION: 1. A 60-year-old with COVID-19 pneumonia due to SARS-CoV-2 with respiratory failure. In addition, he has [id number] renal failure, now requiring dialysis. 2. Anemia. 3. Diabetes. 4. Hypertension. 5. Coronary artery disease. RECOMMENDATION: We will confirm COVID-19 by PCR. Continue with corticosteroids and remdesivir. I have discussed with the patient the addition of Actemra once we have established his diagnosis here. He will require ICU care. Check serial laboratory studies and x-rays. The patient is at risk for further complications. <ELECTRONICALLY SIGNED> By: Griffin Jackson MD 03/17/21 2358 1435 15 Griffin Jackson MD /nt
[2021-03-18] VITALS (22 sets, daily range): BP systolic 128–175; BP diastolic 59–94
[2021-03-18 06:01] LABS: ALBUMIN 2.5 g/dL (3.4-5.0); CALCIUM 8.2 mg/dL (8.5-10.1); DIRECT BILIRUBIN 0.3 mg/dL (<0.1-0.2); PHOSPHORUS 4.9 mg/dL (2.5-4.9); POTASSIUM 4.4 mmol/L (3.5-5.1); TOTAL BILIRUBIN 1.7 mg/dL (0.2-1.0); TOTAL PROTEIN 6.1 g/dL (6.4-8.2)
--- NOTE | 2021-03-18 13:55 | NUR ---
SPOKE WITH PT TODAY COUPLE OF DIFFERENT TIMES, GAVE HER UPDATES REGARDING PT STATUS, WAS ALSO ABLE TO HELP GET PATIENT FMLA/DISABILITY PAPERWORK SIGNED THAT PATIENT NEEDS. ALSO SPOKE WITH DR. OSBORNE TODAY REGARDING GETTING PATIENT CXR AND INFORMED HIM THAT THE WOULD LIKE A CALL FROM HIM SHE HAS SOME CONCERNS. WILL CONTINUE TO FOLLOW POC.
[2021-03-19] VITALS (31 sets, daily range): BP systolic 129–169; BP diastolic 61–92
[2021-03-19 06:21] LABS: ALBUMIN 2.5 g/dL (3.4-5.0); CALCIUM 7.9 mg/dL (8.5-10.1); PHOSPHORUS 5.7 mg/dL (2.6-4.7); POTASSIUM 4.3 mmol/L (3.5-5.1)
[2021-03-19 06:24] LABS: CREATININE 7.4 mg/dL (0.7-1.3)
[2021-03-19 09:31] LABS: T-SPOT.TB Negative
--- NOTE | 2021-03-19 09:56 | NUR ---
P DR. SERNA SPOKE WITH PATIENT REGARDING THE POSSIBILITY OF INTUBATION DUE TO INCREASED FATIGUE AND INTERMITTENT CONFUSION. THE PATIENT DOES NOT WANT TO BE INTUBATED UNTIL THERE ARE NO OTHER OPTIONS. PT STABLE ON BIPAP 100%. RN WILL CONTINUE TO MONITOR
[2021-03-19 10:57] LABS: BE(vivo) 4.4 mmol/L (-2 to +3); HCO3 28.1 mmol/L (22.0-26.0); PCO2 38.6 mmHg (35.0-45.0); PO2 64.8 mmHg (80.0-100.0); sO2 94.1 % (92.0-98.0)
--- NOTE | 2021-03-19 13:36 | NUR ---
0879-SPOKE W RE:NEED FOR BRIDGE CLUB MANAGER TO FOLLOW FOR PULM MANAGEMENT. PT ON 100% BIPAP, VERY FATIGUED,SOME COFUSION THRU NIGHT. ORDERS NOTED.--VW
--- NOTE | 2021-03-19 15:43 | NUR ---
60 year old male remains on 100% BiPap for COVID-19 Pneumonia. No anticipated CM needs at this time. CM to follow when moving closer to discharge needs being identified.
--- NOTE | 2021-03-19 17:37 | NUR ---
PT RECEIVED DIALYSIS TODAY. PT TOLERATED PROCEDURE WELL. PT WAS MADE NPO DUE TO CONDITION. PT REMAINED ON BIPAP AT 100% THROUGHOUT SHIFT AND MAINTAINED OXYGENTATION WELL WITH O2 SATS BETWEEN 90-97%. PT PROGRESSING TOWARD PLAN OF CARE
--- NOTE | 2021-03-19 22:15 | NUR ---
ASSUMED CARE OF PT AT 1900. SPOKE TO PT AT 2213. ANSWERED QUESTIONS AND UPDATED ON PT STATUS.
[2021-03-20] VITALS (26 sets, daily range): BP systolic 108–180; BP diastolic 61–100
[2021-03-20 03:25] LABS: ABSOLUTE NEUTROPHILS 9.4 thou/uL (1.4-8.2); BASOPHILS 0.3 % (0.0-2.0); EOSINOPHILS 3.3 % (0.0-3.0); HEMATOCRIT 22.1 % (42.0-52.0); HEMOGLOBIN 7.4 gm/dL (14.0-18.0); MCH 33.4 pg (26.0-34.0); MCHC 33.3 g/dL (28.0-37.0); MCV 100.4 fL (80.0-100.0); MONOCYTES 5.3 % (1.0-8.0); PLATELET COUNT 456 thou/uL (150-400); POLYS 83.1 % (36.0-66.0); WBC 11.3 thou/uL (4.0-11.0)
[2021-03-20 03:34] LABS: ALBUMIN 2.5 g/dL (3.4-5.0); DIRECT BILIRUBIN 0.3 mg/dL (<0.1-0.2); PHOSPHORUS 5.5 mg/dL (2.5-4.9); POTASSIUM 4.4 mmol/L (3.5-5.1); TOTAL BILIRUBIN 1.2 mg/dL (0.2-1.0); TOTAL PROTEIN 5.7 g/dL (6.4-8.2)
[2021-03-20 03:43] LABS: CREATININE 5.7 mg/dL (0.7-1.3)
[2021-03-20 05:03] LABS: BE(vivo) 3.8 mmol/L (-2 to +3); HCO3 27.7 mmol/L (22.0-26.0); PCO2 38.9 mmHg (35.0-45.0); PO2 62.5 mmHg (80.0-100.0); pH 7.471 (7.360-7.450); sO2 93.3 % (92.0-98.0)
--- NOTE | 2021-03-20 09:45 | NUR ---
Pt has had inadequate oral intake >1 week, hx weight loss. If intubated start enteral nutrition. If remains on BIPAP/NPO status, consider clinimix PPN if renal agrees
--- NOTE | 2021-03-20 16:53 | NUR ---
CONTACTED NEPHROLOGY REGARDING STARTING TPN ON PT. THEY WERE ALRIGHT WITH US STARTING TPN
--- NOTE | 2021-03-20 18:24 | NUR ---
PT REMAINED ON THE BIPAPA AT 100% THROUGHOUT THE DAY. PT RECEIVED HEMODIALYSIS AND TOLERATED THE PROCEDURE WELL. DURING DIALYSIS THEY PULLED OFF 2.5 LITERS OF FLUID. ROUNDING TEAM DISCUSSED STARTING TPN ON PT. NEPHROLOGY CLEARED HIM FOR TPN. PT WILL REQUIRE A NEW CENTRAL LINE IF TPN IS STARTED. PT WAS ABLE TO SPEAK WITH FAMILY TODAY. FMAILY WAS UPDATED BY RN SEVERAL TIMES THROUGHOUT THE SHIFT. PT IS PROGRESSING TOWARD GOAL OF CARE
[2021-03-21] VITALS (24 sets, daily range): BP systolic 114–160; BP diastolic 49–84
[2021-03-21 04:28] LABS: ALBUMIN 2.6 g/dL (3.4-5.0); CALCIUM 8.1 mg/dL (8.5-10.1); CREATININE 6.4 mg/dL (0.7-1.3); DIRECT BILIRUBIN 0.3 mg/dL (<0.1-0.2); PHOSPHORUS 7.3 mg/dL (2.6-4.7); POTASSIUM 5.3 mmol/L (3.5-5.1); TOTAL BILIRUBIN 1.5 mg/dL (0.2-1.0)
[2021-03-21 04:44] LABS: HEMOGLOBIN 6.9 gm/dL (14.0-18.0)
[2021-03-21 04:46] LABS: HEMATOCRIT 21.4 % (42.0-52.0); MCH 32.7 pg (26.0-34.0); MCHC 32.2 g/dL (28.0-37.0); MCV 101.6 fL (80.0-100.0); PLATELET COUNT 431 thou/uL (150-400); RBC 2.11 mil/uL (4.50-6.00); RDW 13.5 % (10.5-14.5); WBC 11.3 thou/uL (4.0-11.0)
[2021-03-21 05:38] LABS: ABSOLUTE NEUTROPHILS 10.3 thou/uL (1.4-8.2); METAMYELOCYTES 1 %
--- NOTE | 2021-03-21 07:13 | NUR ---
ASSESSMENT CHARTED, MEDS CHARTED GIVEN. ALERT AND ORIENTED DURING SHIFT, TRYING TO REST IN BED, PATIENT FIGGITING ALL NIGHT. ON BIPAP ALL SHIFT. ANURIC DURING SHIFT. COVERED SUGARS DURING SHIFT. SORE SPOT ON NOSE RIDGE WAS PADDED. SIPS OF WATER TOLERATED WELL.
[2021-03-21 13:33] LABS: CALCIUM 8.4 mg/dL (8.5-10.1); CREATININE 7.3 mg/dL (0.7-1.3); MAGNESIUM 2.2 mg/dL (1.8-2.4); POTASSIUM 5.8 mmol/L (3.5-5.1)
--- NOTE | 2021-03-21 13:59 | NUR ---
A LEFT IJ CENTRAL LINE WAS PLACED PER HOSPITAL POLICY AFTER A BEDSIDE TIMEOUT WAS COMPLETED. THE 25CM LINE WAS ADVANCED WITHOUT DIFFICULTY. A STAT CHEST XRAY WAS ORDERED FOR CONFIRMATION
--- NOTE | 2021-03-21 18:29 | NUR ---
PT REMAINED STABEL THROUGHOUT SHIFT. PT NOW ON 75% FIO2 ON THE BIPAP. A CENTRAL LINE WAS PLACED FOR TPN INITIATION. PT TOLERATED PROCEDURE WELL. PT SEEMED TO HAVE MORE ENERGY TODAY. PT WAS ABLE TO SPEAK WITH FAMILY OVER THE PHONE. FAMILY WAS UPDATED BY RN. PT PROGRESSING TOWARD GOAL OF CARE
[2021-03-22] VITALS (49 sets, daily range): BP systolic 110–168; BP diastolic 66–116
[2021-03-22 05:58] LABS: MCH 33.2 pg (26.0-34.0); MCHC 32.6 g/dL (28.0-37.0); MCV 101.9 fL (80.0-100.0); PLATELET COUNT 428 thou/uL (150-400); RBC 1.77 mil/uL (4.50-6.00); RDW 13.6 % (10.5-14.5); WBC 11.5 thou/uL (4.0-11.0)
--- NOTE | 2021-03-22 06:00 | NUR ---
AWAKE AND ALERT. VSS GETS UP TO BEDSIDE COMMODE WITH 1 ASSIST. VOIDED 300 CC THIS SHIFT. S/C FOR DIALYIS THIS AM. PROGRESSING TOWARD GOALS
[2021-03-22 06:04] LABS: ALBUMIN 2.5 g/dL (3.4-5.0); CREATININE 8.2 mg/dL (0.7-1.3); DIRECT BILIRUBIN 0.4 mg/dL (<0.1-0.2); MAGNESIUM 2.2 mg/dL (1.8-2.4); PHOSPHORUS 8.4 mg/dL (2.5-4.9); POTASSIUM 5.1 mmol/L (3.5-5.1); TOTAL BILIRUBIN 2.4 mg/dL (0.2-1.0); TOTAL PROTEIN 5.5 g/dL (6.4-8.2)
[2021-03-22 07:00] LABS: HEMOGLOBIN 5.9 gm/dL (14.0-18.0)
[2021-03-22 08:08] LABS: ABSOLUTE NEUTROPHILS 10.5 thou/uL (1.4-8.2); METAMYELOCYTES 3 %
--- NOTE | 2021-03-22 08:29 | NUR ---
PT FOUND TO HAVE HGB OF 5.9 THIS MORNING, THIS RN IS TOYS INSPECTOR THIS MORNING AND ASSISTING WITH PT CARE, CONTACTED ; TWO UNIT OF TRANSFUSION ORDERED, RN SEEN ORDERED ONE UNIT TRANSFUSION WELL. NOTIFIED BLOOD BANK TO HAVE STAT TYPE N SCREEN FOR THE PT AND ENSURE TWO UNITS COLLECTIVELY ARE TRANSFUSED THIS MORNING.
[2021-03-22 09:58] LABS: % SATURATION 81 % (20-39); IRON 136 ug/dL (65-175); TIBC 168 ug/dL (250-450)
[2021-03-22 10:20] LABS: OBSERVED RETIC COUNT 5.29 % (0.6-2.6)
[2021-03-22 18:40] LABS: HEMATOCRIT 23.4 % (42.0-52.0)
[2021-03-22 18:50] LABS: HEMOGLOBIN 8.1 gm/dL (14.0-18.0)
[2021-03-23] VITALS (25 sets, daily range): BP systolic 132–174; BP diastolic 36–113
--- NOTE | 2021-03-23 06:00 | NUR ---
PT NPO FOR NEW DIALYSIS CATH IN AM. GETS UP TO BEDSIDE COMMODE TO VOID 1200 CC UO THIS SHIFT DAILY LASIX SINS RHYTHM TPN AT 40 CC/HR PROGRESSING TOWARD GOALS
[2021-03-23 06:19] LABS: ABSOLUTE NEUTROPHILS 9.3 thou/uL (1.4-8.2); BASOPHILS 0.2 % (0.0-2.0); EOSINOPHILS 0.8 % (0.0-3.0); HEMATOCRIT 23.8 % (42.0-52.0); HEMOGLOBIN 8.1 gm/dL (14.0-18.0); LYMPHOCYTES 4.3 % (24.0-44.0); MCH 32.6 pg (26.0-34.0); MCHC 33.9 g/dL (28.0-37.0); MONOCYTES 4.5 % (1.0-8.0); POLYS 90.2 % (36.0-66.0); RBC 2.47 mil/uL (4.50-6.00); RDW 18.1 % (10.5-14.5); WBC 10.4 thou/uL (4.0-11.0)
[2021-03-23 06:24] LABS: PLATELET COUNT 326 thou/uL (150-400)
[2021-03-23 06:28] LABS: ALBUMIN 2.3 g/dL (3.4-5.0); CALCIUM 7.8 mg/dL (8.5-10.1); MAGNESIUM 1.9 mg/dL (1.8-2.4); PHOSPHORUS 5.7 mg/dL (2.5-4.9); POTASSIUM 4.5 mmol/L (3.5-5.1); TOTAL BILIRUBIN 1.9 mg/dL (0.2-1.0); TOTAL PROTEIN 5.3 g/dL (6.4-8.2)
[2021-03-23 06:31] LABS: CREATININE 5.6 mg/dL (0.7-1.3)
[2021-03-23 06:48] LABS: DIRECT BILIRUBIN 0.4 mg/dL (<0.1-0.2)
[2021-03-23 09:29] LABS: APTT 33.7 Seconds (24.5-32.8); INR 1.25; PROTIME 13.5 Seconds (10.5-12.1)
--- NOTE | 2021-03-23 15:29 | NUR ---
Discussed during los with the attending physician and during unit rounds with pulmonary MD. Getting new dialysis cath today. Requring use of optiflow. Will cont. following as needed.
--- NOTE | 2021-03-23 16:04 | NUR ---
PT CALLED THIS MORNING, REVIEWED POC AND PLAN TO GO TO IR FOR TUNNELED DIALYSIS CATHETER PLACEMENT. INFORMED THAT PT OXYGEN REQ DECREASING AND HOPEFUL TO CONTINUE. PLEASED WITH PROGRESS.
[2021-03-24] VITALS (43 sets, daily range): BP systolic 91–179; BP diastolic 59–102
[2021-03-24 05:26] LABS: PHOSPHORUS 5.6 mg/dL (2.6-4.7); POTASSIUM 3.9 mmol/L (3.5-5.1)
[2021-03-24 05:36] LABS: CREATININE 6.6 mg/dL (0.7-1.3)
[2021-03-25] VITALS (19 sets, daily range): BP systolic 128–187; BP diastolic 62–89
[2021-03-25 06:20] LABS: CALCIUM 8.1 mg/dL (8.5-10.1); MAGNESIUM 1.9 mg/dL (1.8-2.4); PHOSPHORUS 4.9 mg/dL (2.5-4.9); POTASSIUM 4.1 mmol/L (3.5-5.1)
[2021-03-25 06:22] LABS: CREATININE 4.6 mg/dL (0.7-1.3)
--- NOTE | 2021-03-25 13:42 | NUR ---
Discussed during unite rounds. required use of bipap and possible be able to supervisor policy change clerks to opti-flow. Cont of isolation, unable to visit with patient. Cm spoke with is his marii # [phone], education on dcp ahead to have dialysis set up prior to dc. Referral to be sent to [facility] in [place], [place]. want to stay with Dr Mckeon per request.
[2021-03-26] VITALS (24 sets, daily range): BP systolic 116–151; BP diastolic 64–88
[2021-03-26 06:06] LABS: CALCIUM 8.4 mg/dL (8.5-10.1); POTASSIUM 4.1 mmol/L (3.5-5.1)
[2021-03-26 09:07] LABS: MAGNESIUM 2.1 mg/dL (1.8-2.4); PHOSPHORUS 5.3 mg/dL (2.6-4.7)
--- NOTE | 2021-03-26 18:38 | NUR ---
[facility] ic[facility] at 1400. a/o x4. on 55% bipap. npo on tpn. will keep monitor.
[2021-03-27 00:15] VITALS: BP 128/65
--- NOTE | 2021-03-27 04:47 | NUR ---
PT IS SLOWLY PROGRESSING TOWARD GOALS. PT IS A&OX4 AND ABLE TO COMMUNICATE WANTS AND NEEDS TO STAFF EFFECTIVELY. PT HAS BEEN ON BIPAP 55% THROUGHT THE SHIFT PER HIS PREFERENCE, HAS TOLERATED WELL WITH O2 SATS >94%. NPO UNTIL EVALUATED/CLEARED BY SPEECH THERAPY. TPN VIA CENTRAL LINE. VSS, NO C/O PAIN. WILL CONTINUE TO OBSERVE FOR CHANGES
[2021-03-27 04:51] VITALS: BP 140/65
[2021-03-27 07:01] VITALS: BP 126/64
[2021-03-27 16:15] VITALS: BP 144/67
--- NOTE | 2021-03-27 16:25 | NUR ---
SW reviewed chart and spoke with nursing and attending physician. Pt was transferred to 3W from ICU. Pt remains in Enhanced Isolation due to COVID. Pt is afebrile and on bipap support. Pt is on IV meds. Pt is on TPN. ST following. Pt is on dialysis. Will need PT/OT evals ordered when pt is able to participate. MALATHI spoke with pt's , Tuyet, via phone. Update provided. Lengthy discussion regarding plan of care and eventual discharge needs. Pt's is interested in pt going to [facility] for acute rehab. 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 Pt and are hopeful that pt will only need dialysis temporarily until kidneys improve. Pt's asking for assistance with pt's FMLA ppwk. Pt's took to his PCP's office for completion. PCP's office said they will need to schedule an appt to see the pt and then info will be completed. FMLA ppwk needs to be submitted soon. Pt's to email SW info for hospitalist to complete. Contact info for SW provided. Emotional support provided. SW is following to assist as needed with discharge planning.
--- NOTE | 2021-03-27 18:10 | NUR ---
RN ASSUMED PT'S CARE AT 0700AM, PT IS A&OX4, PT IS ON BIPAP WITH O2 55% AT MOST OT TIME , PT IS OPTIFLOW O2 60%,50L/MIN NOW, PT'S O2SAT STAY AT 92-97%, PT 'S VS ARE STABLE AT DAY SHIFT, PT IS OFF COVID ISOLATION TODAY, PT DENIES PAIN AND SOB AT THIS TIME.
[2021-03-27 20:36] VITALS: BP 117/50
--- NOTE | 2021-03-28 04:06 | NUR ---
ASSUMED PT CARE AT 1900. PT HAS FLAT AFFECT AND IS COOPERATIVE. PT HAD NO C/O OF PAIN, NAUSEA/VOMITTING. CURRENTLY ON HFC AT 15L AND O2 SATS 94-95%. PT IS CURRENTLY OFF ISOLATION. VSS AFEBRILE. PT STILL ON NPO STATUS. TPN RUNNING AT 85ML/HR. CONTINUE WITH PLAN OF CARE.
[2021-03-28 05:34] VITALS: BP 148/71
[2021-03-28 06:28] LABS: CALCIUM 8.6 mg/dL (8.5-10.1); CREATININE 5.6 mg/dL (0.7-1.3); MAGNESIUM 2.2 mg/dL (1.8-2.4); POTASSIUM 3.3 mmol/L (3.5-5.1)
[2021-03-28 07:02] VITALS: BP 128/68
[2021-03-28 12:00] VITALS: BP 130/84
[2021-03-28 15:04] VITALS: BP 111/77
--- NOTE | 2021-03-28 18:28 | NUR ---
RN ASSUMED PT'S CARE AT 0700AM, PT IS A&OX4, PT IS OFF BIPAP AND PT IS ON O2 8-10L/MIN/NC, PT'S O2SAT STAY AT 92-96%, PT HAS DE-SAT WITH PT'S ACTIVITIES, PT'S VS ARE STABLE, PT STARTS REANL DIET, PT'S TPN HAS DC, PT DENIES PAIN AT DAY SHIFT.
[2021-03-28 21:15] VITALS: BP 120/74
--- NOTE | 2021-03-29 03:32 | NUR ---
ASSUMED PT CARE AT 1900. PT HAS A FLAT AFFECT AND IS DROWSY. PT REFUSED PO MEDS AND STATED "LET'S TRY AGAIN IN THE MORNING". PT STATED THAT HIS APPETITE IS POOR. CURRENTLY ON BIPAP 45% FIO2 AND O2 SATS 95-96%. PT OFF OF ISOLATION. AWAITING TRANSFER TO PER PLANNING ASSISTANT. CONTINUE WITH PLAN OF CARE.
[2021-03-29 06:04] VITALS: BP 140/78
--- NOTE | 2021-03-29 07:15 | NUR ---
RECEIVED PATIENT FROM 3W AT 0600AM.ON NASAL CANNULA AT 5LPM, VITALLY STABLE.NOT IN PAIN OR DISTRESS.KEPT COMFORTABLE IN BED.TO CONTINOUSLY MONITOR.
[2021-03-29 08:13] VITALS: BP 127/69
[2021-03-29 10:15] LABS: HEMATOCRIT 28.4 % (42.0-52.0); HEMOGLOBIN 9.3 gm/dL (14.0-18.0); MCH 32.7 pg (26.0-34.0); MCHC 32.7 g/dL (28.0-37.0); RBC 2.84 mil/uL (4.50-6.00); RDW 17.6 % (10.5-14.5); WBC 10.2 thou/uL (4.0-11.0)
[2021-03-29 11:10] VITALS: BP 112/61
[2021-03-29 15:19] VITALS: BP 102/55
[2021-03-29 19:43] VITALS: BP 107/63
[2021-03-30 03:52] VITALS: BP 123/72
[2021-03-30 07:10] LABS: ALBUMIN 2.7 g/dL (3.4-5.0); CALCIUM 8.7 mg/dL (8.5-10.1); CREATININE 6.3 mg/dL (0.7-1.3); POTASSIUM 4.1 mmol/L (3.5-5.1)
[2021-03-30 07:50] VITALS: BP 124/76
--- NOTE | 2021-03-30 08:55 | NUR ---
PT RESTING QUIETLY IN ROOM WITH BIPAP THRU THE NOC, VSS, NO C/O PAIN, ABLE TO MOVE SELF IN BED, REPORT GIVEN TO NEXT SHIFT TO CON'T PPOC
[2021-03-30 11:45] VITALS: BP 111/66
[2021-03-30 16:00] VITALS: BP 125/77
--- NOTE | 2021-03-30 16:27 | NUR ---
THERAPY NOTES RECOMMEND PATIENT WILL DC TO REHAB ONCE MEDICALLY TO STABLE TO DC. PT AGREEABLE. EXER OX NOT COMPLETE AT THIS TIME. 5N DAISHA INDICATED REHAB FURNACE CLEANER TO SEE PATIENT TOMORROW ALTHOUGH ANTICIPATE BED AVAILABITY TOMORROW. CM WILL CONTINUE TO FOLLOW.
[2021-03-30 19:55] VITALS: BP 105/57
--- NOTE | 2021-03-31 03:08 | NUR ---
Assumed pt care at 1900. Pt is alert and oriented. No sign of distress noted in pt. Pt is laying in bed, resting. Fall precaution in place. Vital signs stable. Assessment completed and documented. Scheduled meds administered to pt. No acute event during the night. Continue to monitor. No further needs at this time.
[2021-03-31 04:08] VITALS: BP 112/58
[2021-03-31 07:55] VITALS: BP 119/77
[2021-03-31 08:13] LABS: ALBUMIN 2.8 g/dL (3.4-5.0); CALCIUM 8.9 mg/dL (8.5-10.1); CREATININE 6.8 mg/dL (0.7-1.3); PHOSPHORUS 6.4 mg/dL (2.5-4.9); POTASSIUM 3.9 mmol/L (3.5-5.1)
[2021-03-31 11:18] VITALS: BP 113/68
[2021-03-31] MEDS ORDERED: HEPARIN SO5000 UNIT/ SUBQ (11:29)
[2021-03-31] MEDS ORDERED: PULMICORT0.5 MG/22 INH (11:29)
[2021-03-31] MEDS ORDERED: VELTASSA8.4 GM PO (11:29)
[2021-03-31] MEDS ORDERED: IPRAT-ALBUT 0.5-3 ML INH (11:29)
[2021-03-31] MEDS ORDERED: RENVELA800 MG PO (11:29)
[2021-03-31] MEDS ORDERED: FUROSEMIDE20 MG/2 ML IV PUSH (11:29)
[2021-03-31 12:07] VITALS: BP 127/66
--- NOTE | 2021-03-31 12:09 | NUR ---
PT MEDICALLY STABLE TO DC TO 5N REHAB UNIT THIS DAY. CM SPOKE TO PTS ARUN AND SHE IS AWARE. PT WILL DC TO ROOM 510 AT 330. RN CARE AWARE. NO FURTHER CM NEEDS AT THIS TIME.
[2021-03-31 16:28] LABS: HEMATOCRIT 27.9 % (42.0-52.0); HEMOGLOBIN 9.7 gm/dL (14.0-18.0); MCH 34.2 pg (26.0-34.0); MCHC 34.6 g/dL (28.0-37.0); MCV 98.9 fL (80.0-100.0); PLATELET COUNT 240 thou/uL (150-400); RBC 2.82 mil/uL (4.50-6.00); RDW 18.3 % (10.5-14.5); WBC 7.5 thou/uL (4.0-11.0)
[2021-03-31 17:09] LABS: ABSOLUTE NEUTROPHILS 6.9 thou/uL (1.4-8.2); ANISOCYTOSIS 2+; HYPOCHROMASIA 1+
== END 2021-03-31 16:47 | DRG 177 ==
LOC: ER 10:34 → ICU 12:56 → EROBS 12:56 → 3W 14:45 → ICU 16:13 → 3W 03-26 13:47 → 2N 03-29 06:02
PROVIDERS: Emergency Medicine; Hospitalist; Internal Medicine Nephrology; Internal Medicine Pulmonary Disease; Pediatrics; Radiology Diagnostic Radiology; Specialist; ADMIT Hospitalist; ATTEND Hospitalist
PROC: B548ZZA Ultrasonography of Superior Vena Cava, Guidance (ICD-10-PCS; 2021-03-13)
PROC: B5181ZA Fluoroscopy of Superior Vena Cava using Low Osmolar Contrast, Guidance (ICD-10-PCS; 2021-03-13)
PROC: 02HV33Z Insertion of Infusion Device into Superior Vena Cava, Percutaneous Approach (ICD-10-PCS; 2021-03-13)
PROC: XW033E5 Introduction of Remdesivir Anti-infective into Peripheral Vein, Percutaneous Approach, New Technology Group 5 (ICD-10-PCS; principal; 2021-03-14)
PROC: 5A0935A Assistance with Respiratory Ventilation, Less than 24 Consecutive Hours, High Flow/Velocity Cannula (ICD-10-PCS; principal; 2021-03-14)
PROC: 5A09357 Assistance with Respiratory Ventilation, Less than 24 Consecutive Hours, Continuous Positive Airway Pressure (ICD-10-PCS; 2021-03-16)
PROC: 5A0935A Assistance with Respiratory Ventilation, Less than 24 Consecutive Hours, High Flow/Velocity Cannula (ICD-10-PCS; 2021-03-17)
PROC: 5A09357 Assistance with Respiratory Ventilation, Less than 24 Consecutive Hours, Continuous Positive Airway Pressure (ICD-10-PCS; 2021-03-17)
PROC: 5A0935A Assistance with Respiratory Ventilation, Less than 24 Consecutive Hours, High Flow/Velocity Cannula (ICD-10-PCS; 2021-03-18)
PROC: 5A09357 Assistance with Respiratory Ventilation, Less than 24 Consecutive Hours, Continuous Positive Airway Pressure (ICD-10-PCS; 2021-03-18)
PROC: 5A09357 Assistance with Respiratory Ventilation, Less than 24 Consecutive Hours, Continuous Positive Airway Pressure (ICD-10-PCS; 2021-03-19)
PROC: 5A0935A Assistance with Respiratory Ventilation, Less than 24 Consecutive Hours, High Flow/Velocity Cannula (ICD-10-PCS; 2021-03-19)
PROC: 5A09457 Assistance with Respiratory Ventilation, 24-96 Consecutive Hours, Continuous Positive Airway Pressure (ICD-10-PCS; 2021-03-19)
PROC: 02H633Z Insertion of Infusion Device into Right Atrium, Percutaneous Approach (ICD-10-PCS; 2021-03-23)
PROC: 0JH63XZ Insertion of Tunneled Vascular Access Device into Chest Subcutaneous Tissue and Fascia, Percutaneous Approach (ICD-10-PCS; 2021-03-23)
PROC: B5181ZA Fluoroscopy of Superior Vena Cava using Low Osmolar Contrast, Guidance (ICD-10-PCS; 2021-03-23)
PROC: 5A0935A Assistance with Respiratory Ventilation, Less than 24 Consecutive Hours, High Flow/Velocity Cannula (ICD-10-PCS; 2021-03-23)
PROC: B548ZZA Ultrasonography of Superior Vena Cava, Guidance (ICD-10-PCS; 2021-03-23)
PROC: 5A0935A Assistance with Respiratory Ventilation, Less than 24 Consecutive Hours, High Flow/Velocity Cannula (ICD-10-PCS; 2021-03-24)
PROC: 5A09357 Assistance with Respiratory Ventilation, Less than 24 Consecutive Hours, Continuous Positive Airway Pressure (ICD-10-PCS; 2021-03-24)
PROC: 5A09357 Assistance with Respiratory Ventilation, Less than 24 Consecutive Hours, Continuous Positive Airway Pressure (ICD-10-PCS; 2021-03-25)
PROC: 5A0935A Assistance with Respiratory Ventilation, Less than 24 Consecutive Hours, High Flow/Velocity Cannula (ICD-10-PCS; 2021-03-25)
PROC: 5A09357 Assistance with Respiratory Ventilation, Less than 24 Consecutive Hours, Continuous Positive Airway Pressure (ICD-10-PCS; 2021-03-26)
PROC: 5A0935A Assistance with Respiratory Ventilation, Less than 24 Consecutive Hours, High Flow/Velocity Cannula (ICD-10-PCS; 2021-03-27)
PROC: 5A09357 Assistance with Respiratory Ventilation, Less than 24 Consecutive Hours, Continuous Positive Airway Pressure (ICD-10-PCS; 2021-03-28)
PROC: 5A0935A Assistance with Respiratory Ventilation, Less than 24 Consecutive Hours, High Flow/Velocity Cannula (ICD-10-PCS; 2021-03-28)
PROC: 5A09357 Assistance with Respiratory Ventilation, Less than 24 Consecutive Hours, Continuous Positive Airway Pressure (ICD-10-PCS; 2021-03-30)
DX: U07.1 COVID-19 (principal); J12.82 Pneumonia due to coronavirus disease 2019; E43 Unspecified severe protein-calorie malnutrition; J80 Acute respiratory distress syndrome; J69.0 Pneumonitis due to inhalation of food and vomit; N17.9 Acute kidney failure, unspecified; G72.81 Critical illness myopathy; F32.9 Major depressive disorder, single episode, unspecified; K21.9 Gastro-esophageal reflux disease without esophagitis; N40.0 Benign prostatic hyperplasia without lower urinary tract symptoms; N18.9 Chronic kidney disease, unspecified; E11.22 Type 2 diabetes mellitus with diabetic chronic kidney disease; I12.9 Hypertensive chronic kidney disease with stage 1 through stage 4 chronic kidney disease, or unspecified chronic kidney disease; D64.9 Anemia, unspecified; I25.10 Atherosclerotic heart disease of native coronary artery without angina pectoris; G47.33 Obstructive sleep apnea (adult) (pediatric); Z79.4 Long term (current) use of insulin; Z95.1 Presence of aortocoronary bypass graft; Z83.3 Family history of diabetes mellitus; Z82.49 Family history of ischemic heart disease and other diseases of the circulatory system
CPT/HCPCS: 10078; 10081; 10196; 10203; 10779; 32100; 85076

== ENCOUNTER 2021-03-31 10:17 | Inpatient (IN) | payer OTHER ==
[~2021-03-31] VITALS: Ht 175.3 cm; Wt 80.7 kg
[~2021-03-31 10:17] MED LIST changes: +AMLODIPINE BESY10 MG PO; +COLACE 100 MG100 MG PO
[2021-03-31] MEDS ORDERED: VELTASSA8.4 GM PO (11:29)
[2021-03-31] MEDS ORDERED: RENVELA800 MG PO (11:29)
[2021-03-31] MEDS ORDERED: HEPARIN SO5000 UNIT/ SUBQ (11:29)
[2021-03-31] MEDS ORDERED: PULMICORT0.5 MG/22 INH (11:29)
[2021-03-31] MEDS ORDERED: FUROSEMIDE20 MG/2 ML IV PUSH (11:29)
[2021-03-31] MEDS ORDERED: IPRAT-ALBUT 0.5-3 ML INH (11:29)
--- NOTE | 2021-03-31 19:27 | NUR ---
PT UP TO FLOOR APPROX 1630. PT A&OX4. PT UP WITH SBA. PT ON 3L NC. WILL CONTNIUE TO MONITOR
[2021-03-31 19:45] VITALS: BP 111/70
--- NOTE | 2021-04-01 04:42 | NUR ---
Assumed care on 03/31/21 @ 1900, in bed A&Ox4 with confusion noted. Pleasant affect noted and cooperative with care. Compliant with medication administration. FSBS 217, 10 U Glargine provided sub Q as per orders. Wearing Bipap and sleeping well, high fall risk, will continue to monitor for safety and comfort as per unit protocol.
[2021-04-01 06:01] LABS: HEMATOCRIT 28.2 % (42.0-52.0); HEMOGLOBIN 9.5 gm/dL (14.0-18.0); MCH 33.3 pg (26.0-34.0); MCHC 33.5 g/dL (28.0-37.0); MCV 99.4 fL (80.0-100.0); RBC 2.84 mil/uL (4.50-6.00); RDW 18.6 % (10.5-14.5); WBC 9.1 thou/uL (4.0-11.0)
[2021-04-01 06:41] LABS: ANION GAP 11 mmol/L (7-16); BUN 49 mg/dL (7-18); CHLORIDE 102 mmol/L (98-107); CO2 27 mmol/L (21-32); GLUCOSE 74 mg/dL (74-106); POTASSIUM 4.3 mmol/L (3.5-5.1); SODIUM 140 mmol/L (136-145)
[2021-04-01 06:43] LABS: CREATININE 4.3 mg/dL (0.7-1.3)
[2021-04-01 07:20] VITALS: BP 123/65
--- NOTE | 2021-04-01 08:38 | NUR ---
PT ASSISTED TO CHAIR. PT SAT IN BED WAS 87% ON 3L NC. PT ENCOURAGED TO USE IS AT BEDSIDE. PT DENIES ANY PAIN. PT UP TO CHAIR, SAT DROPPED TO 77% INCREASED OXYGEN TO 4L NC. PT TOOK MEDS THIS AM WITH WATER. PT HAS CRACKLES TO RLL AND LLL, NO COUGH. PT HAS SL TO LEFT FA. PT IJ TO RT NECK INTACT. PT TOLERATIND DIET.
[2021-04-01 12:53] LABS: FOLIC ACID 6.2 ng/mL (8.6-58.9)
[2021-04-01 13:38] LABS: CHOLESTEROL 220 mg/dL (<200); HDL CHOLESTEROL 58 mg/dL (>40); LDL CHOLESTEROL 132 mg/dL (<100); TC:HDL 3.8 Ratio (Not establshd); TRIGLYCERIDE 153 mg/dL (<150); VLDL 31 mg/dL (<40)
--- NOTE | 2021-04-01 14:52 | NUR ---
60 year old male. Out of enhanced Isolation. Came in covid +, and SOA. He was in the ICU, required the use of bipap, ID . renal function worsened. and nephrology consulted. placed on temporary Hemodialysis and will likely need outpt HD or peritoneal dialysis. 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 He lives at home with his Tuyet # [phone]. Single level home, no stairs. No dme. Manage his own medication, and finances. No hh or rehab in the past. No falls and drives a vehicle. PCP dr Bhardwaj. He is currently still requiring oxygen 4-6 L per nasal cannula, will need to see if oxygen can be tapered off prior to dc home or if he will need home o2 at dc. Will cont. following as needed.
--- NOTE | 2021-04-01 18:50 | NUR ---
PT HAS NOT VOIDED SINCE LASIX GIVEN TODAY, PT STATED THAT IS NOT UNUSUAL FOR HIM NOT TO VOID, HE STATED THE LASIX IS TO HELP HIM VOID.
[2021-04-01 19:34] VITALS: BP 115/67
--- NOTE | 2021-04-02 01:47 | NUR ---
assumed care approx 0 evening 04/01. pt lying in bed with head of bed elevated resting. pt alert and oriented x4, pleasant and cooperative. 02 at 5L per n/c. pt took hs meds with water tolerating well. pt stated he has not had a bm for several days however denies discomfort and states that is not unusual for him. pt states he is passing flatus. bipap on now with continuous pulse oximeter in place. bed alarm on and call light in reach. will continue to monitor.
[2021-04-02 07:00] VITALS: BP 135/72
--- NOTE | 2021-04-02 09:42 | NUR ---
PT SITTING UP IN RECLINER FOR BREAKFAST. PT SEEMS DOWN AND FLAT. PT HAS OXYGEN ON 6L NC. PT SAT IN THE 70'S AND RAISED OXYGEN UP TO 8L NC. CALLED RESPIRATORY AND ASKED ABOUT HIS SAT BEING LOW AND HIS BUBBLER FOR OXYGEN WAS INFLATING. RT CAME TO ROOM AND REPLACED BUBBLER FOR OXYGEN AND ALSO PLACED PT ON HIGH FLOW OXYGEN TUBING. PT SAT REACHED TO 90%. PT DIDN'T SHOW ANY SIGNS OF DISTRESS, NO BLUE TINGED LIPS OR FINGERTIPS. PT TOOK MEDS WITH WATER WHOLE. NO ISSUES. PT ENCOURAGED TO DRINK PROTIEN DRINK FOR KIDNEYS.
--- NOTE | 2021-04-02 13:00 | NUR ---
PT GETTING READY TO HAVE DIALYSIS VIA LEFT IJ. PT SAT DROPPING TO LOWER 80'S WITH 10L NC. APPLIED A EAR OXYGEN SAT ON PT AND SAT WENT TO 90-91%. IN ROOM AND WORRIED ABOUT HIS OXYGEN DROPPING. PT HAS NO SIGNS OF SOB OR HYPOXIA.
--- NOTE | 2021-04-02 13:54 | NUR ---
team meeting, recommendation: increased fatigued. dec oxygen saturation, had to go to HF o2 8 L. No bm since 3rd kub ordered. Re team.
[2021-04-02 19:02] VITALS: BP 129/78
[2021-04-02 19:34] VITALS: BP 135/72
--- NOTE | 2021-04-03 01:32 | NUR ---
PT ALERT AND ORIENTED X 4. 02 ON AT 8L PER HIGH FLOW CANNULA. [facility] DIALYSIS CATH INTACT. PT TAKES MEDS WITH WATER WITHOUT DIFFICULTY. PT DENIES PAIN OR DISCOMFORT. BED ALARM ON FOR SAFETY. PT APPEARS TO BE SLEEPING ON HOURLY ROUNDS. REFUSED BIPAP TONIGHT.
[2021-04-03 08:00] VITALS: BP 140/70
--- NOTE | 2021-04-03 10:20 | NUR ---
PATIENT RECIEVED MAG. CITRATE AND POLY. POWDER @1000 FOR CHRONIC CONSTIPATION; PATIENT HAS NOT HAD BOWEL MOVEMENT SINCE 03/23/21 PER CHARTING AND PATIENT STATEMENT; PATIENT DRANK ALL LIQUIDS WITH FOOD SERVICE SPECIALIST AT BEDSIDE; CALL LIGHT IS WITHIN REACH AND A BEDSIDE COMMODE WAS PLACED IN ROOM; ABDOMEN IS DISTENDED, FIRM TO PALPATION WITH BSP*4; PATIENT COMPLAINS OF MILD PAIN WHEN PALPATING, OTHERWISE DENIES PAIN.
--- NOTE | 2021-04-03 15:17 | NUR ---
referral sent to [facility] for [facility] location.
[2021-04-03 18:32] VITALS: BP 140/70
[2021-04-03 19:18] VITALS: BP 123/65
--- NOTE | 2021-04-03 19:24 | NUR ---
A&O*4; V/S PRESENT HYPERTENSIVE; LUNG SOUNDS CLEAR, DIMINISHED AT BASES, WITH O2 RUNNING 7L NASAL CANNULA WITH CONTINOUS PULSE OX MONITIORING; ABDOMEN IS FIRM TO TOUCH, DISTENDED, WITH BSP*4; PATIENT WAS ABLE TO HAVE A SML LOOSE BOWEL MOVEMENT TODAY @1500; PATIENT STILL STATES "I FEEL LIKE THATS NOT ALL OF IT." HAS A LEFT FOREARM IV THAT IS SALINE LOCKED; HAS LEFT IJ FOR DIALYSIS USE ONLY-D/C/I; PATIENT DENIED PAIN, SOB, AND CHEST PAIN; FALL PRECAUTIONS ARE IN PLACE;
--- NOTE | 2021-04-03 19:40 | NUR ---
RN CONCURS WITH SKIING INSTRUCTOR CHARTING
--- NOTE | 2021-04-04 01:15 | NUR ---
PT ALERT AND ORIENTED X 4. 02 ON AT 8L PER NC CONT. 02 SAT'S IN 90'S. BLOOD SUGAR 301 AT HS. GISEL CHAN NP NOTIFIED WITH ORDERS RECEIVED. INSULIN GIVEN ORDERED. PT DENIES PAIN OR DISCOMFORT. BED ALARM ON FOR SAFETY. PT APPEARS TO BE SLEEPING ON HOURLY ROUNDS.
[2021-04-04 11:33] VITALS: BP 141/70
--- NOTE | 2021-04-04 11:42 | NUR ---
PATIENT CARE RESUMMED; PATIENT IN BED RESTING WITHOUT COMPLAINTS OD DISTRESS; PATIENT DENIES PAIN AT THIS TIME; PATIENT DOES HAVE DIALYSIS TODAY; LUNG SOUNDS PRESENT COARSE/DIMINISHED; VSS; PATIENT ON HIGH FLOW O2 AT 8L; O2 DIPS DOWN WHEN PATIENT MOVES FROM LYING POSTION TO SITTING POSITION; INCREASING O2 TO 10L WITH EXERTION; A&O*4; ABDOMEN IS SOFT, MINIMAL DISTENTIONS NOTED COMPARED TO YESTERDAY; MEDICATIONS HELD THIS MORNING PER DIALYSIS NURSE; IV IN THE LEFT FOREARM THAT IS S.L; DIALYSIS PORT IN THE LEFT IJ-D/C/I; FALL PRECAUTIONS IN PLACE FOR PATIENT SAFETY;
[2021-04-04 14:59] VITALS: BP 160/93
--- NOTE | 2021-04-04 15:01 | NUR ---
DIALYSIS NURSE COMPLETED; REPORTS PATIENT IS UP IN HIS CHAIR EATING LUNCH POST DIALYSIS; V/S ONCE COMPLETED BP-160/93 HR-61 RR-18 TEMP-97.4 DIALYSIS NURSE REPORTED TO EXECUTIVE CASINO HOST FLUID REMOVED WAS 1.5LI; PATIENT ATE RUFFLY 50% OF LUNCH; PATIENT DENIES PAIN, DISCOMFORT AT THIS TIME; PAIENT ASSISTED TO BED AFTER LUNCH STATED "IM JUST TIRED." PATIENT LEFT WITH FREQ. USED ITEMS AND CALL LIGHT WITHIN REACH; PATIENT ASKED TO REST AWHILE; FALL PRECAUTIONS IN PLACE;
--- NOTE | 2021-04-04 18:57 | NUR ---
AGREE WITH ASSESSMENT.
[2021-04-04 21:45] VITALS: BP 134/61
--- NOTE | 2021-04-05 03:38 | NUR ---
assumed care approx 0 evening 04/04. pt sitting up in bed resting at change of shift. 02 at 10L per n/c. continuous pulse oximeter in place with sats 92% and greater. pt stated he had a bm yesterday and small one today. pt took hs meds with water tolerating well. pt appears to be sleeping soundly. bed alarm on and call light in reach. will continue to monitor.
[2021-04-05 10:02] VITALS: BP 130/72
[2021-04-05 13:49] VITALS: BP 130/72
--- NOTE | 2021-04-05 16:40 | NUR ---
RESUMMED CARE; PATIENT LOCATED IN BED SLEEPING UPON INITAL ASSESSMENT; PATIENT DENIES PAIN AND VOICED NO CONCERNS TODAY; PATIENT WAS EDUCATED ABOUT CALLING NURSE WHEN HE HAS TO USE THE BATHROOM; PATIENT HAS NOT URINATED TODAY-DIALYSIS 04/04/20; VSS ON 10L O2-N.C; OXYGEN WAS DECRESED PER RT THIS MORNING TO 8L-N.C DUE TO PATIENT BEING AT 100% SAT ON 10L; NO S/O DISTRESS PRESENTED; PATIENT PARTICIPATED IN PT TODAY-PT REPORTED TO PRINCIPAL MILITARY ANALYST OF O2 BEING STABLE THROUGHOUT THERAPY; PATIENT APPEARS WITH A FLAT AFFECT AND DEPRESSED TODAY; A&O*4; LEFT FOREARM IV IN PLACE, FLUSED *2 TODAY-D/C/I; LEFT IJ PORT FOR DIALYSIS IN PLACE-D/C/I; FALL PRECAUTIONS IN PLACE; WILL CONTINUE TO MONITIOR;
--- NOTE | 2021-04-05 16:54 | NUR ---
BLOOD GLUCOSE CHECK @1645 SHOWED SUGAR WAS 311- PATIENT HAS NOT EATEN ANYTHING EXTRA TODAY WHEN ASKED IF FAMILY POSSIBLE BROUGHT SOMETHING IN TO CAUSE SUGAR TO INCREASE; PATIENT DENIED; CROSSBAR SWITCH ADJUSTER PAGED @8474 FOR REFERAL FOR A ONETIME DOSE OF LANTUS ALONG SIDE PATIENTS LISPRO (SSI); PAGED RETUNED @9156; INFORMED OD SITUATION AND WAS TOLD TO FOLLOW ([facility]) AND THAT WOULD BE FINE; WLL CONTINUE TO MONITIOR PATIENT;
[2021-04-05 20:28] VITALS: BP 142/74
--- NOTE | 2021-04-06 03:30 | NUR ---
assumed care approx 1900 evening 04/05. pt alert and oriented x4, appropriate and cooperative. pt took hs meds with water tolerating well. pts blood sugar high at hs 394. nurse practioner Harleen Stephen paged and no additional orders given for extra coverage. 02 at 8L per n/c. pt refusing to wear bipap, sats 92% and greater with pulse oximeter in place. pt voiding per urinal. pt appears to be sleeping soundly. bed alarm on and call light in reach. will continue to monitor.
[2021-04-06 07:46] VITALS: BP 151/72
[2021-04-06 19:32] VITALS: BP 145/87
--- NOTE | 2021-04-07 00:32 | NUR ---
PT ALERT AND ORIENTED X 4. 02 ON AT 8L PER NC CONT. CONT O2 SAT MONITOR ON WITH SAT'S IN 90'S. RIGHT CHEST DIALYSIS CATH INTACT. LSC IV INTACT AND PATENT EXCEPT FOR BLUE PORT. PT DENIES PAIN OR DISCOMFORT. BED ALARM ON FOR SAFETY. PT AWAKE SO FAR TONIGHT. PLAYING WITH CELL PHONE. WILL CONTINUE TO MONITOR.
[2021-04-07 05:59] LABS: BASOPHILS 0.2 % (0.0-2.0); HEMATOCRIT 28.9 % (42.0-52.0); HEMOGLOBIN 9.7 gm/dL (14.0-18.0); LYMPHOCYTES 14.6 % (24.0-44.0); MCHC 33.6 g/dL (28.0-37.0); MCV 101.3 fL (80.0-100.0); MONOCYTES 5.3 % (1.0-8.0); PLATELET COUNT 174 thou/uL (150-400); POLYS 78.9 % (36.0-66.0); RBC 2.86 mil/uL (4.50-6.00); WBC 12.7 thou/uL (4.0-11.0)
[2021-04-07 06:32] LABS: ALBUMIN 3.1 g/dL (3.4-5.0); CALCIUM 9.2 mg/dL (8.5-10.1); CREATININE 6.5 mg/dL (0.7-1.3); MAGNESIUM 2.8 mg/dL (1.8-2.4); PHOSPHORUS 4.3 mg/dL (2.5-4.9); POTASSIUM 3.9 mmol/L (3.5-5.1)
[2021-04-07 07:00] VITALS: BP 146/80
[2021-04-07 08:00] VITALS: BP 152/79
[2021-04-07 10:37] LABS: BE(vivo) 1.7 mmol/L (-2 to +3); HCO3 25.8 mmol/L (22.0-26.0); PO2 67.1 mmHg (80.0-100.0); pH 7.439 (7.360-7.450)
--- NOTE | 2021-04-07 20:26 | NUR ---
PATIENT DID WELL ON DIALYSIS THIS AFTERNOON. AT BEDSIDE DURING DIALYSIS. PATIENT O2 SATURATION BEING OBSERVED. PATIENT EATING WELL.
[2021-04-07 20:50] VITALS: BP 138/66
--- NOTE | 2021-04-08 01:13 | NUR ---
ASSUMED CARE OF PT AT 1930 ON 04/07/21. PT IS A&OX4. IS ON 10L OF O2/NC WITH CONTINUOUS PULSE OX MONITOR IN PLACE. SATING LOW 90S HIGH 80S. PT WEARS CPAP AT HS. DENIES SOB, CHEST PAIN, OR DIFFICULTY BREATHING. IS STABLE. IS UP WITH 1 ASSIST, GB TO BSC. FALL PRECAUTTIONS & HOURLY ROUNDING CONTINUED THIS SHIFT. PT CALLS APPROPRIATELY FOR ASSISTANCE NEEDED. LABS & VITALS REVIEWED. VOIDS PER URINAL. IS ABLE TO TURN SELF IN BED. CALL LIGHT WITHIN REACH. CURRENTLY ASLEEP. WILL CONTINUE TO MONITOR.
[2021-04-08 08:00] VITALS: BP 146/74
--- NOTE | 2021-04-08 13:52 | NUR ---
PATIENT INCREASING ENDURANCE. PATIENT EXPRESSES DESIRE TO GET STRONGER. PATIENT CONCERNED ABOUT DIALYSIS. PATIENT VERY COOPERATIVE AND EAGER TO DO WHAT IT TAKES TO GET BACK HOME.
--- NOTE | 2021-04-08 13:53 | NUR ---
PATIENT IS COOPERATIVE AND HELPFUL. PATIENT IS FORGETFUL. PATIENT ENJOYS COMPANY WITH FAMILY. DAUGHTER WILL BE GOING HOME TOMORROW, 04/08. IF ANY CONCERNS, PLEASE CONTACT HER SINCE SHE IS DPOA.
[2021-04-08 19:16] VITALS: BP 132/81
--- NOTE | 2021-04-09 03:04 | NUR ---
ASSUMED CARE OF PT AT 1930 ON 04/08/21. PT IS A&OX4. IS ON 6L OF O2/NC WITH CONTINUOUS PULSE OX MONITOR. DENIES CHEST PAIN, DISCOMFORT, OR SOB. WEARS CPAP AT HS. CURRENTLY ON. IS STABLE. IS UP WITH STANDBY ASSIST, GB. FALL PRECAUTIONS & HOURLY ROUNDING CONTINUED THIS SHIFT. LABS & VITALS REVIEWED. PT IS CURRENTLY ASLEEP. CALL LIGHT WITHIN REACH. WILL CONTINUE TO MONITOR.
[2021-04-09 08:00] VITALS: BP 145/87
[2021-04-09 09:50] VITALS: BP 145/87
--- NOTE | 2021-04-09 13:16 | NUR ---
Team meeting, recommendation: needing anywhere from 6 to 10L of oxygen. Still continue dialysis. Eating well, continent of b and b. independent with toileting. B/p dropped during tue dialysis tx and had to have ivf. Checking cbc today. Encourage IS and reteam
--- NOTE | 2021-04-09 19:51 | NUR ---
PATIENT ENCOURAGED TO EXERCISE LUNGS THROUGH PT AND OT THIS SHIFT. PATIENT COMPLETING HEMODIALYSIS THIS AFTERNOON WITH 2920 ML TAKEN OFF. PATIENT AT 2 L O2 WITH 98% SATURATION AFTER DIALYSIS. OF PATIENT AT BEDSIDE. PATIENT IN GOOD SPIRITS AND EAGER TO CONTINUE THERAPIES TO IMPROVE. PATIENT INCREASINGLY AMBULATING TO RESTROOM WITH STAND-BY ASSIST.
[2021-04-09 22:15] VITALS: BP 161/95
--- NOTE | 2021-04-10 01:32 | NUR ---
PT ALERT AND ORIENTED X 4. 02 ON AT 4L PER NC CONT. RIGHT TESSIO INTACT. PT REFUSED MIRALAX AT HS. PT DENIES PAIN OR DISCOMFORT. BED ALARM ON FOR SAFETY. PT CHECKED ON HOURLY ROUNDS.
[2021-04-10 08:14] VITALS: BP 137/82
[2021-04-10 14:08] LABS: HEMATOCRIT 33.5 % (42.0-52.0); HEMOGLOBIN 10.6 gm/dL (14.0-18.0); MCH 33.8 pg (26.0-34.0); MCHC 31.7 g/dL (28.0-37.0); MCV 106.4 fL (80.0-100.0); RBC 3.15 mil/uL (4.50-6.00); RDW 18.3 % (10.5-14.5); WBC 7.4 thou/uL (4.0-11.0)
[2021-04-10 14:23] LABS: CALCIUM 9.1 mg/dL (8.5-10.1); POTASSIUM 3.6 mmol/L (3.5-5.1)
--- NOTE | 2021-04-10 18:29 | NUR ---
Patient A&OX4 and pleasant throughout shift. Patient completed therapies this shift and did well. Still on 4L NC. Tolerated PO intake well; adhired to 1500cc fluid restriction. Patient denies needs and voices no further complaints. Patient is progressing well towards discharge goal.
[2021-04-10 20:26] VITALS: BP 138/85
--- NOTE | 2021-04-11 03:25 | NUR ---
PT ASSESSMENT COMPLETED AND VSS. MEDS GIVEN ORDERED AND WELL TOLERATED. SAT WNL ON NC WITH CONT 02 SAT MONITOR. PT DENIES NEEDS. UP TO THE BATHROOM WITH ASST/GAIT - STEADY. SLEEPING WELL. WILL CONTINUE TO MONITOR FREUQENTLY.
[2021-04-11 08:00] VITALS: BP 148/81
--- NOTE | 2021-04-11 15:49 | NUR ---
2 VIEW CXR OBTAINED PER ORDER. PCT ESCORTED PT DOWN TO RADIOLOGY VIA W/C. XRAYS SHOWED MARGINALLY WORSENING OF PREVIOUS INFILTRATES AND MILD CARDIOMEGALY.
[2021-04-11 21:00] VITALS: BP 138/74
--- NOTE | 2021-04-12 02:19 | NUR ---
ASSUMED CARE OF PT AT 1915 ON 04/11/21. PT IS A&OX4. IS ON 6L OF O2/NC WITH CONTINOUS PULSE OX MONITORING. PT REFUSE TO WEAR BIPAP THIS EVENING. IS STABLE. DENIES SOB, DIFFICULTY BREATHING, OR CHEST PAIN AT THIS TIME. IS UP WITH STANDBY ASSIST, GB, WALKER. FALL PRECAUTIONS & HOURLY ROUNDING CONTINUED THIS SHIFT. LABS & VITALS REVIEWED. CALL LIGHT WITHIN REACH. PT ABLE TO REPOSITION SELF IN BED. WILL CONTINUE TO MONITOR.
[2021-04-12 07:39] VITALS: BP 145/81
--- NOTE | 2021-04-12 14:03 | NUR ---
PT STARTED ON LEVAQUIN TODAY. ALSO HAD IV TEAM PLACE A SALINE LOCK IN LT WRIST/FOREARM TO BE ABLE TO ADMINISTER IVP LASIX. LASIX ADMINISTERED WITHOUT INCIDENT. ORDER TO OBTAIN A SPUTUM CULTURE. WILL PASS THIS ALONG TO GO CART MECHANIC SO THEY MAY OBTAIN IN THE AM. NO C/O PAIN THIS SHIFT.
[2021-04-12 19:10] VITALS: BP 147/82
--- NOTE | 2021-04-13 01:36 | NUR ---
PT ASSESSMENT COMPLETED AND VSS. MEDS GIVEN ORDERED AND WELL TOLERATED. FALL PRECAUTIONS IN PLACE. PT WANTS TO BE ABLE TO GET UP ON HIS OWN AND IS STEADY. WILL MENTION TO DAY RN. PT MENTIONED TO RESPIRATORY THAT HE USES A CPAP AT HOME. HIS WAS RECALLED WITH THE [facility] [place] RECALL THAT OCCURED RECENTLY. PT STATED THAT HE WAS HAVING TROUBLE GETTING A REPLACEMENT UNIT BEFORE COMING TO THE HOSPITAL. AND SINCE PT WAS HERE WITH COVID HE IS CONCERNED ABOUT GOING HOME WITHOUT A CPAP UNIT. HE WANTS TO KNOW IF SOMEONE CAN HELP HIM GET THIS RESOLVED BEFORE HIS D/C HOME. PT SAT WNL ON NC AT HS. CONT O2 SAT MONITOR WNL AT THIS TIME. PT UP WATCHING TV LATE. PT DID NOT WANT TO WEAR HIS BIPAP AT HS. SLEEPING AT THIS TIME. WILL CONTINUE TO MONITOR FREQUENTLY.
[2021-04-13 08:00] VITALS: BP 147/89
[2021-04-13 19:34] VITALS: BP 138/82
--- NOTE | 2021-04-14 01:35 | NUR ---
PT ASSESSMENT COMPLETED AND VSS. MEDS GIVEN ORDERED AND WELL TOLERATED. PT MOD I AND VERY STEADY/CAREFUL WHEN UP. CONT 02 SAT MONITOR ON AND WNL AT THIS TIME. INSULIN GIVEN ORDERED. PT DENIES NEEDS. SLEEPING WELL. WILL CONTINUE TO MONITOR FREQUENTLY.
[2021-04-14 08:00] VITALS: BP 151/94
--- NOTE | 2021-04-14 19:14 | NUR ---
PT MOD I IN ROOM. PT GAIT STAEDY. O2 SAT ABOVE 92 ON 6 TO 7 L NC. DIALYSIS TODAY WILL CONTNIUE TO MONITOR.
[2021-04-14 22:01] VITALS: BP 137/77
--- NOTE | 2021-04-14 23:36 | NUR ---
ASSUMED CARE OF PT AT 1915. PT IS A&OX4. IS ON 4L OF O2/NC. IS STABLE. DENIES PAIN. CONTINUES ON DIALYSIS WITH LEFT CHEST TESSIO INTACT. DENIES SOB, CHEST PAIN, OR ANY OTHER SYMPTOMS AT THIS TIME. IS UP AD WANG IN ROOM. HOURLY ROUNDING COTNINUED THIS SHIFT. LABS & VITALS REVIWED. PT IS CURRENTLY SLEEPING. CALL LIGHT WITHIN REACH. WILL CONTINUE TO MONITOR.
[2021-04-15 08:27] VITALS: BP 131/85
--- NOTE | 2021-04-15 10:08 | NUR ---
cm notified that he might be ready for dc on tuesday. updates to be sent to [facility] for [facility]. He will need home o2 set up as well.
--- NOTE | 2021-04-15 15:23 | NUR ---
PT NOT ON OXYGEN AT THIS TIME. DESATS WITH ACTIVITY. CAN RECOVER QUICKLY ON 2L NC. PT IS MOD I IN ROOM. WILL CONTINUE TO MONITOR.
[2021-04-15 15:27] VITALS: BP 131/85
[2021-04-15 15:30] VITALS: BP 131/85
[2021-04-15 21:15] VITALS: BP 132/77
--- NOTE | 2021-04-16 02:17 | NUR ---
assumed care approx 1899 evening 04/15. pt alert and oriented x4, pleasant and coopertive. 02 at 2l per n/c. continuous pulse oximeter in place. pt modified independent in room tolerating well. pt took hs meds with water tolerating well. call light in reach. will continue to monitor.
[2021-04-16 06:11] LABS: ABSOLUTE NEUTROPHILS 3.1 thou/uL (1.4-8.2); BASOPHILS 0.3 % (0.0-2.0); EOSINOPHILS 3.1 % (0.0-3.0); HEMATOCRIT 28.7 % (42.0-52.0); HEMOGLOBIN 9.8 gm/dL (14.0-18.0); LYMPHOCYTES 37.1 % (24.0-44.0); MCHC 34.2 g/dL (28.0-37.0); MCV 99.4 fL (80.0-100.0); MONOCYTES 8.1 % (1.0-8.0); PLATELET COUNT 187 thou/uL (150-400); POLYS 51.4 % (36.0-66.0); RBC 2.88 mil/uL (4.50-6.00); RDW 17.1 % (10.5-14.5)
[2021-04-16 06:29] LABS: CALCIUM 8.7 mg/dL (8.5-10.1); CREATININE 6.1 mg/dL (0.7-1.3); MAGNESIUM 1.8 mg/dL (1.8-2.4); PHOSPHORUS 4.6 mg/dL (2.5-4.9); POTASSIUM 3.8 mmol/L (3.5-5.1)
[2021-04-16 07:55] VITALS: BP 132/77
--- NOTE | 2021-04-16 13:22 | NUR ---
team meeting, recommendation: dc 28 with Sebastián Maria ( pt, nursing). Start outpt dialysis at [facility]. Home o2 and trilogy through [facility].
[2021-04-16 22:25] VITALS: BP 118/75
--- NOTE | 2021-04-17 00:09 | NUR ---
PT ALERT AND ORIENTED X 4. MODIFIED INDEPENDENT IN ROOM. 02 ON AT 1L PER NC CONT. CONT 02 SAT MONITOR ON WITH SAT'S IN 90'S. PT DENIES PAIN OR DISCOMFORT. PT AWAKE ON HOURLY ROUNDS.
[2021-04-17 07:28] VITALS: BP 132/80
--- NOTE | 2021-04-17 10:01 | NUR ---
He is having dialysis this morning to be able to discharge home today. Will need o2 and trilogy from [facility] before he can leave today. Sebastián dominguez. [facility], 04/20/21 0530 am.
[2021-04-17] MEDS ORDERED: TAMSULOSIN HCL0.4 MG PO (12:13)
[2021-04-17] MEDS ORDERED: LOSARTAN POTAS100 MG PO (12:13)
[2021-04-17 12:20] VITALS: BP 131/85
[2021-04-17] MEDS ORDERED: RENVELA800 MG PO (15:15)
[2021-04-17] MEDS ORDERED: MIDODRINE HCL 55 M1 PO (15:15)
[2021-04-17] MEDS ORDERED: VENTOLIN HFA 1818 GM INH (15:15)
[2021-04-17] MEDS ORDERED: FOLIC ACID1 MG PO (15:15)
[2021-04-17] MEDS ORDERED: LEVOFLOXACIN500 MG PO (15:15)
[2021-04-17] MEDS ORDERED: PROTONIX 20 MG20 MG PO (15:17)
[2021-04-17 15:28] VITALS: BP 131/85
--- NOTE | 2021-04-17 16:30 | NUR ---
DISCHARGE INSTRUCTIONS REVIEWED WITH PT AND PT'S . BOTH VERBALIZED UNDERSTANDING. HOME 02 DELIVERED TO ROOM PRIOR TO DC. SALINE LOCK DC'D PRIOR TO DISCHARGE. CATHETER TIP INTACT. PT TOLERATED WELL. PT'S BELONGINGS SENT WITH PT. PT ESCORTED DOWN TO ENTRANCE DOORS VIA W/C BY STAFF AND ASSISTED INTO FAMILY CAR. PT DISCHARGED IN STABLE CONDITION.
--- NOTE | 2021-04-19 13:47 | HC ---
[facility] [place] [place] [address] CONSULTATION Name: MONTSE BARFIELD Room #: 510-P [facility] IN M.R.#: [id number] Admission: 03/31/21 Attend Phys: Osmani Ceballos MD Discharge: 04/17/21 Date of : 62 Report #: [id number] THIS REPORT FOR: cc: Shaun Bhardwaj MD, Neal A. MD Deutch,Shaun Ball. PhD ~ DATE OF SERVICE: 04/11/2021 NEUROBEHAVIORAL STATUS EXAM ATTENDING PHYSICIAN: Osmani Ceballos MD CHEMICAL RECOVERY OPERATOR: Shaun Powers, PhD CLINICAL PRESENTATION: The patient is a 60-year-old male admitted to the [facility] on 03/13/2021 with worsening shortness of air, cough and poor appetite. He tested positive for COVID-19 on 03/11/2021 and was admitted to the ICU and placed on a BiPAP. The patient carries a medical problem list of acute on chronic renal failure, acute renal failure, COVID-19 exposure, hyperkalemia, hypoxic, pneumonia due to COVID-19 virus, respiratory failure, trigger finger on the left hand and an upper respiratory infection. His assessment on admission to the rehabilitation unit was gait instability with pulmonary deconditioning, acute hypoxemic respiratory failure secondary to COVID-19 pneumonia, KATHLEEN chronic, stage IV chronic kidney disease, on hemodialysis, anemia is multifactorial, type 2 diabetes mellitus, obstructive sleep apnea, hypertension and hyperlipidemia. A complete description of his medical condition and history can be found in his medical record. Neuropsychological consultation was requested to provide assistance in the assessment of cognitive and emotional status and provide recommendations and services. Prior to this most recent admission, the patient was living independently with his in their home. 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 He is a high school graduate with a 2-year associate of arts degree. The patient has 2 biological and 1 adopted child. TECHNIQUES UTILIZED: Clinical interview, review of medical records, staff consultation and behavioral observation, family interview -- , mini mental status exam 2 standard version, clock drawing and verbal fluency assessment (letter and category). EXAMINATION FINDINGS: The patient was alert and cooperative with the assessment. He accurately described the reason for his admission. There is no evidence of aphasia. Thoughts are logical and goal oriented. There is no [facility] [address] [place] [address] CONSULTATION Name: CAROLYNEMONTSEJINNY JENKINS Room #: 510-P [facility] IN .R.#: [id number] Admission: 03/31/21 Attend Phys: Osmani Ceballos MD Discharge: 04/17/21 Date of : 62 Report #: [id number] evidence of thought disorder. He does not report auditory or visual hallucinations or suicidal ideation. Performance on the MMSE 2 brief version is within normal limits with a raw score of 15-16. He was 3/3 for initial registration, 5/5 for orientation to time and place and 2/3 for immediate recall of 3 items after a brief time delay and distraction. Performance on the MMSE 2 standard version was within normal limits with a raw score of 27/30. He was 3/5 for serial sevens, 2/2 for naming, 1/1 for repetition, 3/3 for comprehension. He could read and follow a single command, write a sentence and copy a simple geometric design. Clock drawings within normal limits. Letter fluency was in the average range and within normal limits with a T score of 44 and percentile rank of 27. Category fluency was extremely low with a raw score of 24, T score of 21 and percentile rank of less than 1. Overall, total fluency was a raw score of 49, T-score of 28 and percentile rank of 1. The patient is presenting with variability in verbal fluency and difficulty with attention/concentration. Diminished thought organization can be associated with deficits verbal fluency. DIAGNOSTIC IMPRESSION: Mild neurocognitive disorder, unspecified, without behavior disorder. RECOMMENDATIONS: The patient would benefit from a more thorough neuropsychological evaluation following his return home to clarify cognitive status. While recovery from Covid 19 is typically very good, problems associated with hypoxemia can affect memory as well as executive functioning. Continued assistance may be of benefit from his prior to a return to a level of independence that preceded his hospitalization. Thank you very much for allowing me to provide the consultation on this patient. <ELECTRONICALLY SIGNED> By: Shaun Powers, PhD 04/19/21 1347 [id number] Shaun Powers, PhD /nt
== END 2021-04-17 16:30 | disposition home health service (06) | DRG 91 ==
PROVIDERS: Nurse Practitioner; Nurse Practitioner Family; ADMIT Physical Medicine & Rehabilitation; ATTEND Physical Medicine & Rehabilitation
DX: G72.81 Critical illness myopathy (principal); J96.01 Acute respiratory failure with hypoxia; J12.82 Pneumonia due to coronavirus disease 2019; U07.1 COVID-19; N18.6 End stage renal disease; E43 Unspecified severe protein-calorie malnutrition; I12.0 Hypertensive chronic kidney disease with stage 5 chronic kidney disease or end stage renal disease; R26.89 Other abnormalities of gait and mobility; G47.33 Obstructive sleep apnea (adult) (pediatric); E55.9 Vitamin D deficiency, unspecified; E53.8 Deficiency of other specified B group vitamins; E78.5 Hyperlipidemia, unspecified; G31.84 Mild cognitive impairment of uncertain or unknown etiology; F32.9 Major depressive disorder, single episode, unspecified; N40.0 Benign prostatic hyperplasia without lower urinary tract symptoms; K21.9 Gastro-esophageal reflux disease without esophagitis; K59.00 Constipation, unspecified; E11.22 Type 2 diabetes mellitus with diabetic chronic kidney disease; I25.10 Atherosclerotic heart disease of native coronary artery without angina pectoris; D63.8 Anemia in other chronic diseases classified elsewhere; Z99.2 Dependence on renal dialysis; Z79.4 Long term (current) use of insulin; Z95.1 Presence of aortocoronary bypass graft
CPT/HCPCS: 10112; 32100

== ENCOUNTER 2021-04-18 23:35 | Emergency (ER) | payer OTHER ==
[~2021-04-18] VITALS: Ht 175.3 cm; Wt 79.4 kg
[~2021-04-18 23:35] MED LIST changes: +FOLIC ACID1 MG PO; +FUROSEMIDE20 MG/2 ML IV PUSH; +HEPARIN SO5000 UNIT/ SUBQ; +IPRAT-ALBUT 0.5-3 ML INH; +LEVOFLOXACIN500 MG PO; +LOSARTAN POTAS100 MG PO; +MIDODRINE HCL 55 M1 PO; +PROTONIX 20 MG20 MG PO; +PULMICORT0.5 MG/22 INH; +RENVELA800 MG PO; +TAMSULOSIN HCL0.4 MG PO; +VELTASSA8.4 GM PO; +VENTOLIN HFA 1818 GM INH
[2021-04-19 00:07] LABS: HEMATOCRIT 33.5 % (42.0-52.0); MCH 33.4 pg (26.0-34.0); MCHC 32.8 g/dL (28.0-37.0); MCV 101.8 fL (80.0-100.0); PLATELET COUNT 219 thou/uL (150-400); RBC 3.29 mil/uL (4.50-6.00); RDW 16.9 % (10.5-14.5); WBC 7.8 thou/uL (4.0-11.0)
[2021-04-19 00:19] LABS: CALCIUM 9.1 mg/dL (8.5-10.1); CREATININE 6.9 mg/dL (0.7-1.3); POTASSIUM 4.2 mmol/L (3.5-5.1)
[2021-04-19 01:11] LABS: ABSOLUTE NEUTROPHILS 5.7 thou/uL (1.4-8.2); ANISOCYTOSIS 1+
[2021-04-19 03:40] VITALS: BP 123/70
--- NOTE | 2021-04-20 07:31 | EKG ---
[place] [address] [employer] [facility] [place] [address] ELECTROCARDIOGRAM REPORT Name: MONTSE BARFIELD [id number] Admission: 04/18/21 Attend Phys: Discharge: 04/19/21 Date of : 62 Report #: [id number] [facility] ED Test Date: 2021-04-18 Test Time: 23:49:36 Pat Name: MONTSE BARFIELD Department: Room: Gender: M Belt Splicer: : 1960 Requested By: Liam Neves Order Number: [id number] MD: Yahir Nava Measurements Intervals [place] Rate: 92 P: 52 VT: 152 QRS: -21 QRSD: 110 T: -31 QT: 369 QTc: 457 Interpretive Statements Sinus rhythm RSR' in V1 or V2, probably normal variant Left ventricular hypertrophy Inferior infarct, old Compared to ECG 03/13/2021 11:19:43 Left ventricular hypertrophy now present Myocardial infarct finding still present Electronically Signed On 04-20-2021 7:31:06 SURG PHYSICIAN ASST by Yahir Nava [email or web address] <ELECTRONICALLY SIGNED> By: Yahir Nava MD, [facility] 04/20/21 0731 [id number] Yahir Nava MD, [facility] /EPI
== END 2021-04-19 07:10 | disposition home or self-care (01) ==
LOC: ER 23:35
PROVIDERS: Student in an Organized Health Care Education/Training Program
DX: R53.1 Weakness (principal); F32.9 Major depressive disorder, single episode, unspecified; K21.9 Gastro-esophageal reflux disease without esophagitis; I12.9 Hypertensive chronic kidney disease with stage 1 through stage 4 chronic kidney disease, or unspecified chronic kidney disease; E11.22 Type 2 diabetes mellitus with diabetic chronic kidney disease; N18.4 Chronic kidney disease, stage 4 (severe); Z79.899 Other long term (current) drug therapy

== ENCOUNTER → 2021-05-08 | Outpatient (CLI) | payer OTHER ==
[~2021-05-08] VITALS: Ht 175.3 cm; Wt 79.8 kg
[2021-05-08 13:14] VITALS: BP 134/78
[2021-05-08 13:43] LABS: HEMATOCRIT 27.5 % (42.0-52.0); HEMOGLOBIN 9.6 gm/dL (14.0-18.0); MCH 34.7 pg (26.0-34.0); MCHC 34.9 g/dL (28.0-37.0); MCV 99.4 fL (80.0-100.0); RBC 2.77 mil/uL (4.50-6.00); RDW 16.4 % (10.5-14.5); WBC 7.3 thou/uL (4.0-11.0)
[2021-05-08 13:55] LABS: INR 0.95; PROTIME 10.4 Seconds (10.5-12.1)
== END ==
LOC: RAD 12:54
PROVIDERS: ATTEND Family Medicine
DX: T82.41XA Breakdown (mechanical) of vascular dialysis catheter, initial encounter (principal); I12.9 Hypertensive chronic kidney disease with stage 1 through stage 4 chronic kidney disease, or unspecified chronic kidney disease; E11.22 Type 2 diabetes mellitus with diabetic chronic kidney disease; N18.4 Chronic kidney disease, stage 4 (severe); G47.30 Sleep apnea, unspecified; F32.9 Major depressive disorder, single episode, unspecified; K21.9 Gastro-esophageal reflux disease without esophagitis; E78.5 Hyperlipidemia, unspecified; I25.2 Old myocardial infarction; N40.0 Benign prostatic hyperplasia without lower urinary tract symptoms; Z98.890 Other specified postprocedural states; Z20.822 Contact with and (suspected) exposure to COVID-19; Z79.899 Other long term (current) drug therapy; Z79.4 Long term (current) use of insulin; Z95.1 Presence of aortocoronary bypass graft; Y83.8 Other surgical procedures as the cause of abnormal reaction of the patient, or of later complication, without mention of misadventure at the time of the procedure